=== PATIENT | female | born 1940 | race Caucasian/White ===

== ENCOUNTER 2017-04-10 13:55 | Inpatient (IN) | payer MEDICARE, OTHER ==
[~2017-04-10] VITALS: Ht 160 cm; Wt 54.0 kg
--- NOTE | ~2017-04-10 | CN ---
PATIENT NAME:PIERO LUCERO MEDICAL RECORD: [id number] : 40 LOCATION:[facility] ADMIT DATE: 04/10/17 ACCOUNT: [id number] CONSULTING PHYSICIAN: ARIADNA SINGH MD REFERRING PHYSICIAN: MODESTA FRANKLIN DO DATE OF CONSULTATION: 04/10/2017 CONSULT REQUESTING PHYSICIAN: Mik Franklin DO. REASON FOR CONSULTATION: COPD. HISTORY OF PRESENT ILLNESS: Ms. Lucero is a 77-year-old female very well known to me, who has an end-stage COPD. The patient had a fall and hurt her right leg and there was redness and swelling. The patient admitted for the cellulitis. According to the patient, her breathing is stable. There are no cough and no sputum production. She does have shortness of breath with exertion. REVIEW OF SYSTEMS: As in history of present illness. PAST MEDICAL HISTORY: 1. COPD of severe degree. 2. Chronic hypoxic respiratory failure. 3. Hypertension. 4. History of possible congestive heart failure. 5. History of pneumonia. PAST SURGICAL HISTORY: Nonsignificant. PERSONAL AND SOCIAL HISTORY: The patient is an ex-smoker. She is a nondrinker. FAMILY HISTORY: Noncontributory. ALLERGIES: SHE IS ALLERGIC TO PENICILLIN, ASPIRIN AND SULFA. PRESENT MEDICATIONS: In brettapproved was reviewed. PERSONAL AND SOCIAL HISTORY: As mentioned, the patient is a nonsmoker and nondrinker. PHYSICAL EXAMINATION: VITAL SIGNS: The blood pressure 156/76, pulse is 70, respirations 17, temperature 97.9 and SpO2 of 98% on 2 liters nasal cannula. HEENT: Conjunctivae are pink. Sclerae nonicteric. NECK: Supple. No JVD. CHEST: The chest excursion is minimal on both sides. There are no wheezes and no rales. HEART: Rhythm regular, normal sound, no murmur. ABDOMEN: Soft. Bowel sounds present. No hepatosplenomegaly. RECTAL: Deferred. EXTREMITIES: No cyanosis, no clubbing and no pedal edema. SKIN: Warm, normal turgor. CENTRAL NERVOUS SYSTEM: The patient is awake and alert. There are no obvious cranial nerve abnormality. The gait was not tested. SKIN: There is a swelling of the right lower extremity with cellulitis. CONSULT REPORT [id number] PIERO LUCERO LABORATORY DATA: CBC: WBC 10.6, hemoglobin 11.4, hematocrit 33.7 and platelet count 333. IMPRESSION: 1. Cellulitis of the right lower extremity. 2. Chronic hypoxic respiratory failure. 3. Chronic obstructive pulmonary disease without exacerbation. 4. Hyponatremia. 5. History of hypertension. RECOMMENDATION: 1. Continue vancomycin. I will add clindamycin with added effect Gram-positive cocci. 2. Continue albuterol/ipratropium nebulizer. Start Brovana and budesonide nebulizer. Supplemental oxygen. Check chest x-ray and followup labs. Dr. Franklin, thank you for involving me in the care of Ms. Lucero. TRANSINT:[id number] Voice Confirmation ID: [id number] DOCUMENT ID: [id number] ARIADNA SINGH MD CC: MODESTA FRANKLIN DO [id number] DICTATION DATE: 04/10/171719 VINEYARD TENDER: 04/10/172058 ADM IN [facility] [address] [id number]
[~2017-04-10 13:55] MED LIST: ADVAIR 100/501 DISK INH; CALAN SR240 MG PO; CALAN120 MG PO; CARDIZEM CD240 MG PO; COLACE100 MG PO; CORDARONE200 MG PO; COUMADIN2 MG PO; COUMADIN4 MG PO; COZAAR100 MG; COZAAR100 MG PO; DYAZIDE 37.5/251 CAP PO; ELIQUIS5 MG PO; K-DUR20 MEQ PO; LASIX40 MG PO; LEVAQUIN500 MG PO; MIRALAX17 GM PO; PREDNISONE10 MG PO; PREDNISONE20 MG PO; PROTONIX40 MG PO; RYTHMOL150 MG PO; ZOFRAN4 MG PO
[2017-04-10 14:22] LABS: BASOPHILS 0.4 % (0-2); EOSINOPHILS 2.6 % (0-7); HEMATOCRIT 33.7 % (36.0-48.0); HEMOGLOBIN 11.4 g/dL (12-16); IMMATURE GRANULOCYTES 0.8 % (0-5); LYMPHOCYTES 15.2 % (15-50); MCH 28.8 pg (26.0-34.0); MCHC 33.8 g/dL (31.0-37.0); MCV 85.1 fL (80.0-100.0); MEAN PLATELET VOLUME 9.8 fL (7.4-10.4); MONOCYTES 14.8 % (2-11); NEUTROPHILS 66.2 % (40-80); PLATELET COUNT 333 10x3/uL (130-400); RBC 3.96 10x6/uL (4.00-5.40); WBC 10.6 10x3/uL (4.8-10.8)
[2017-04-10 14:48] VITALS: BP 156/76; BMI 21.1
[2017-04-10 15:19] LABS: ALBUMIN 3.4 g/dL (3.4-5.0); ANION GAP 13.7 mmol/L (8-16); BILIRUBIN - TOTAL 0.4 mg/dL (0.2-1.3); CALCIUM 9.8 mg/dL (8.5-10.1); CARBON DIOXIDE 30.8 mmol/L (21.0-32.0); POTASSIUM - SERUM 3.5 mmol/L (3.5-5.1)
[2017-04-10 15:25] VITALS: BP 156/76
[2017-04-10] MEDS ORDERED: CARTIA XT120 MG PO (15:44)
[2017-04-10] MEDS ORDERED: PROPAFENONE HC150 MG PO (15:45)
[2017-04-10] MEDS ORDERED: DIOVAN HCT 160/1 TA1 PO ×2 (15:48→15:49)
[2017-04-10] MEDS ORDERED: IPRAT-ALBUT 0.5-3 ML UPD (15:56)
[2017-04-10 19:00] VITALS: BP 127/54
[2017-04-11 04:00] VITALS: BP 129/58
[2017-04-11 06:23] LABS: BASOPHILS 0.7 % (0-2); EOSINOPHILS 3.2 % (0-7); HEMATOCRIT 30.5 % (36.0-48.0); HEMOGLOBIN 10.1 g/dL (12-16); IMMATURE GRANULOCYTES 0.6 % (0-5); LYMPHOCYTES 15.6 % (15-50); MCH 28.5 pg (26.0-34.0); MCHC 33.1 g/dL (31.0-37.0); MCV 85.9 fL (80.0-100.0); MEAN PLATELET VOLUME 10.8 fL (7.4-10.4); MONOCYTES 18.5 % (2-11); NEUTROPHILS 61.4 % (40-80); PLATELET COUNT 338 10x3/uL (130-400); RBC 3.55 10x6/uL (4.00-5.40); RDW 14.1 % (11.5-14.5); WBC 9.1 10x3/uL (4.8-10.8)
[2017-04-11 06:49] LABS: ALBUMIN 2.7 g/dL (3.4-5.0); BILIRUBIN - TOTAL 0.31 mg/dL (0.2-1.3); CALCIUM 8.8 mg/dL (8.5-10.1); CARBON DIOXIDE 33.1 mmol/L (21.0-32.0); CREATININE - SERUM 1.1 mg/dL (0.6-1.3); POTASSIUM - SERUM 3.1 mmol/L (3.5-5.1); PROTEIN - SERUM 6.5 g/dL (6.4-8.2)
[2017-04-11] MEDS ORDERED: COUMADIN4 MG PO (08:31)
[2017-04-11] MEDS ORDERED: COUMADIN2 MG PO (08:32)
[2017-04-11 08:48] VITALS: BP 156/71
[2017-04-11 10:51] LABS: INR 1.75 (0.85-1.17); PROTIME 20.4 SECONDS (11.6-15.0)
[2017-04-11 12:33] VITALS: BP 141/67
[2017-04-11 13:36] VITALS: Ht 160 cm; Wt 54.0 kg
[2017-04-11 16:58] VITALS: BP 134/61
[2017-04-11 19:00] VITALS: BP 141/57
[2017-04-12 04:00] VITALS: BP 142/67
[2017-04-12 05:06] LABS: BASOPHILS 0.5 % (0-2); EOSINOPHILS 4.2 % (0-7); HEMATOCRIT 31.1 % (36.0-48.0); HEMOGLOBIN 10.2 g/dL (12-16); IMMATURE GRANULOCYTES 0.4 % (0-5); LYMPHOCYTES 15.4 % (15-50); MCH 28.7 pg (26.0-34.0); MCHC 32.8 g/dL (31.0-37.0); MCV 87.4 fL (80.0-100.0); MEAN PLATELET VOLUME 10.1 fL (7.4-10.4); MONOCYTES 18.1 % (2-11); NEUTROPHILS 61.4 % (40-80); PLATELET COUNT 288 10x3/uL (130-400); RBC 3.56 10x6/uL (4.00-5.40); RDW 14.3 % (11.5-14.5); WBC 9.3 10x3/uL (4.8-10.8)
[2017-04-12 05:18] LABS: INR 1.85 (0.85-1.17); PROTIME 21.4 SECONDS (11.6-15.0)
[2017-04-12 05:27] LABS: ANION GAP 8.2 mmol/L (8-16); CALCIUM 8.9 mg/dL (8.5-10.1); CARBON DIOXIDE 33.6 mmol/L (21.0-32.0); POTASSIUM - SERUM 3.8 mmol/L (3.5-5.1)
[2017-04-12 08:06] VITALS: BP 147/85
[2017-04-12 12:46] VITALS: BP 145/75
[2017-04-12 15:30] VITALS: BP 122/63
[2017-04-12 20:00] VITALS: BP 152/74
[2017-04-13] VITALS: BP 166/73
[2017-04-13 04:00] VITALS: BP 159/75
[2017-04-13 04:55] LABS: BASOPHILS 0.4 % (0-2); EOSINOPHILS 3.8 % (0-7); HEMATOCRIT 32.3 % (36.0-48.0); HEMOGLOBIN 10.6 g/dL (12-16); IMMATURE GRANULOCYTES 0.3 % (0-5); LYMPHOCYTES 14.4 % (15-50); MCHC 32.8 g/dL (31.0-37.0); MCV 88.3 fL (80.0-100.0); MEAN PLATELET VOLUME 10.4 fL (7.4-10.4); NEUTROPHILS 67.1 % (40-80); PLATELET COUNT 293 10x3/uL (130-400); RBC 3.66 10x6/uL (4.00-5.40); RDW 14.1 % (11.5-14.5); WBC 10.5 10x3/uL (4.8-10.8)
[2017-04-13 05:07] LABS: ANION GAP 6.4 mmol/L (8-16); CALCIUM 9.1 mg/dL (8.5-10.1); CREATININE - SERUM 0.9 mg/dL (0.6-1.3); POTASSIUM - SERUM 3.4 mmol/L (3.5-5.1)
[2017-04-13 05:11] LABS: INR 1.74 (0.85-1.17); PROTIME 20.4 SECONDS (11.6-15.0)
[2017-04-13 09:03] VITALS: BP 173/85
[2017-04-13 12:28] VITALS: BP 141/71
[2017-04-13 16:53] VITALS: BP 113/67; BP 139/74
[2017-04-13 20:00] VITALS: BP 132/71
[2017-04-14] VITALS: BP 127/62
[2017-04-14 04:00] VITALS: BP 158/72
[2017-04-14 05:28] LABS: BASOPHILS 0.6 % (0-2); EOSINOPHILS 4.1 % (0-7); HEMOGLOBIN 10.1 g/dL (12-16); IMMATURE GRANULOCYTES 0.3 % (0-5); LYMPHOCYTES 10.8 % (15-50); MCH 28.6 pg (26.0-34.0); MCHC 32.6 g/dL (31.0-37.0); MCV 87.8 fL (80.0-100.0); MEAN PLATELET VOLUME 10.3 fL (7.4-10.4); MONOCYTES 15.1 % (2-11); NEUTROPHILS 69.1 % (40-80); PLATELET COUNT 284 10x3/uL (130-400); RBC 3.53 10x6/uL (4.00-5.40); RDW 14.2 % (11.5-14.5); WBC 10.9 10x3/uL (4.8-10.8)
[2017-04-14 05:56] LABS: ANION GAP 3.9 mmol/L (8-16); CALCIUM 8.7 mg/dL (8.5-10.1); CARBON DIOXIDE 38.3 mmol/L (21.0-32.0); CREATININE - SERUM 0.9 mg/dL (0.6-1.3); POTASSIUM - SERUM 3.2 mmol/L (3.5-5.1)
[2017-04-14 09:00] VITALS: BP 170/71
[2017-04-14] MEDS ORDERED: MILK OF MAGNESI30 ML PO (09:06)
[2017-04-14] MEDS ORDERED: VANCOMYCIN 1 GM/1 G1 IV (09:06)
[2017-04-14] MEDS ORDERED: DIOVAN80 MG PO (09:15)
[2017-04-14 13:13] VITALS: BP 156/82
== END 2017-04-14 14:00 | DRG 603 ==
LOC: D.MS 13:55
PROVIDERS: Internal Medicine Pulmonary Disease; ADMIT Family Medicine
DX: L03.115 Cellulitis of right lower limb (principal); J96.11 Chronic respiratory failure with hypoxia; E87.1 Hypo-osmolality and hyponatremia; J44.9 Chronic obstructive pulmonary disease, unspecified; K21.9 Gastro-esophageal reflux disease without esophagitis; I10 Essential (primary) hypertension; I48.0 Paroxysmal atrial fibrillation; K59.09 Other constipation

== ENCOUNTER 2017-04-14 14:27 | Inpatient (IN) | payer MEDICARE, OTHER ==
[~2017-04-14] VITALS: Ht 160 cm; Wt 54.4 kg
[~2017-04-14 14:27] MED LIST changes: +CARTIA XT120 MG PO; +DIOVAN HCT 160/1 TA1 PO; +DIOVAN80 MG PO; +IPRAT-ALBUT 0.5-3 ML UPD; +MILK OF MAGNESI30 ML PO; +PROPAFENONE HC150 MG PO; +VANCOMYCIN 1 GM/1 G1 IV
[2017-04-14 15:55] VITALS: BP 141/71
--- NOTE | 2017-04-14 16:26 | NUR ---
PT RESTING IN BED WITH EYES OPEN CALL LIGHT IN REACH NO PROBLEMS WILL MONITER
--- NOTE | 2017-04-14 17:56 | NUR ---
SITTING ON EDGE OF BED EATING SUPPER TOLERATING WELL WILL MONITER
--- NOTE | 2017-04-14 19:25 | NUR ---
PT. IN BED WITH HOB UP FOR COMFORT. ASSESSMENT COMPLETED. PT. REPORTS SHE HAS LIQUID RUNNING FROM HER LEFT HAND. ASSESSED IV SITE AND IT IS INFILTRATED. D/C'D IV SITE WITH CATH TIP INTACT. NO BLEEDING SEEN AFTER PRESSURE APPLIED. BANDAID APPLIED TO SITE AND IV WILL BE RESITED. CALL LIGHT WITHIN REACH.
[2017-04-14 19:45] VITALS: BP 144/80
--- NOTE | 2017-04-14 23:45 | NUR ---
NEW IV RESITED INTO RIGHT FOREARM TIMES 1 ATTEMPT WITH 22GA ANGIOCATH WITHOUT ANY PROBLEMS. VANCOMYCIN INFUSION COMPLETED. PT. TOLERATED PROCEDURE WITHOUT COMPLAINTS. PT. REQUESTED R.T. COME AND GIVE HER A BREATHING TX. FOR HER WHEEZING/SOB. CALLED R.T. AND THEY WILL BE HERE SHORTLY. CALL LIGHT WITHIN REACH.
--- NOTE | 2017-04-15 03:10 | NUR ---
PT. IN BED LYING ON HER RIGHT SIDE WITH HOB UP FOR COMFORT. EYES CLOSED AND RESP. EVEN. CALL LIGHT WITHIN REACH.
[2017-04-15 07:07] LABS: BASOPHILS 0.3 % (0-2); EOSINOPHILS 2.8 % (0-7); HEMOGLOBIN 10.1 g/dL (12-16); IMMATURE GRANULOCYTES 0.3 % (0-5); LYMPHOCYTES 8.3 % (15-50); MCH 28.7 pg (26.0-34.0); MCHC 32.6 g/dL (31.0-37.0); MCV 88.1 fL (80.0-100.0); MEAN PLATELET VOLUME 10.4 fL (7.4-10.4); MONOCYTES 15.8 % (2-11); NEUTROPHILS 72.5 % (40-80); PLATELET COUNT 262 10x3/uL (130-400); RBC 3.52 10x6/uL (4.00-5.40); RDW 14.2 % (11.5-14.5)
[2017-04-15 07:15] LABS: CALC OSMOLALITY 261 mosm/kg (275-300); CALCIUM 9.4 mg/dL (8.5-10.1); CHLORIDE - SERUM 92 mmol/L (98-107); CREATININE - SERUM 0.7 mg/dL (0.6-1.3); GLUCOSE 102 mg/dL (74-106); POTASSIUM - SERUM 3.7 mmol/L (3.5-5.1); SODIUM 131 mmol/L (136-145); UREA NITROGEN 11 mg/dL (7-18); eGFR NON AFRICAN AMERICAN 86 mL/min (90-120)
[2017-04-15 07:19] LABS: INR 2.25 (0.85-1.17)
--- NOTE | 2017-04-15 08:00 | NUR ---
PT SITTING ON EDGE OF BED EATING BREAKFAST. PT DENIES NEEDS. WCTM.
[2017-04-15 09:23] VITALS: BP 165/78
--- NOTE | 2017-04-15 10:48 | NUR ---
PT RESTING IN BED, VISITORS AT BEDSIDE. WCLEMUEL.
--- NOTE | 2017-04-15 18:20 | NUR ---
PT RESTING , WAITING FOR RESPIRATORY. FAMILY AT BEDSIDE. WCTM.
[2017-04-15 19:45] VITALS: BP 149/72
--- NOTE | 2017-04-15 23:09 | NUR ---
PT. IN BED WITH HOB UP FOR COMFORT AND IS STILL WATCHING TV. ASSISTED TO BR AND SHE WAS UNABLE TO VOID. ASSISTED BACK TO BED AND POSITIONED TO COMFORT. O2 ON AT 2L/MIN VIA N/C WITHOUT ANY S/S DISTRESS OBSERVED. PT. DOES GET SOB W/EXERTION. CALL LIGHT WITHIN REACH.
--- NOTE | 2017-04-16 03:06 | NUR ---
PT. IN BED WITH HOB UP FOR COMFORT LYING ON HER RIGHT SIDE. EYES CLOSED AND RESP. EVEN. CALL LIGHT WITHIN REACH.
[2017-04-16 06:51] LABS: BASOPHILS 0 % (0-2); EOSINOPHILS 0 % (0-7); HEMATOCRIT 31.2 % (36.0-48.0); HEMOGLOBIN 10.2 g/dL (12-16); IMMATURE GRANULOCYTES 0.3 % (0-5); MCH 28.3 pg (26.0-34.0); MCHC 32.7 g/dL (31.0-37.0); MCV 86.4 fL (80.0-100.0); MEAN PLATELET VOLUME 10.7 fL (7.4-10.4); NEUTROPHILS 86.7 % (40-80); PLATELET COUNT 310 10x3/uL (130-400); RBC 3.61 10x6/uL (4.00-5.40); RDW 13.8 % (11.5-14.5)
[2017-04-16 07:05] LABS: WBC 8.6 10x3/uL (4.8-10.8)
[2017-04-16 07:06] LABS: INR 2.9 (0.85-1.17); PROTIME 30.6 SECONDS (11.6-15.0)
[2017-04-16 07:13] LABS: CALCIUM 8.9 mg/dL (8.5-10.1); CARBON DIOXIDE 34.2 mmol/L (21.0-32.0); CREATININE - SERUM 0.8 mg/dL (0.6-1.3); POTASSIUM - SERUM 4.2 mmol/L (3.5-5.1)
[2017-04-16 08:00] VITALS: BP 150/75
--- NOTE | 2017-04-16 10:01 | NUR ---
PATIENT ADMITTED TO REHAB FROM ACUTE FLOOR. DME AT HOME HOME: O2, WHEELCHAIR, WALKER AND BEDSIDE COMMODE. DR. FRANKLIN IS PCP AND PHARMACY IS [facility]. PLANS ARE FOR PATIENT TO RETURN HOME WITH SPOUSE. WILL CONTINUE TO FOLLOW WITH PATIENT.
--- NOTE | 2017-04-16 10:10 | NUR ---
PT AM MEDS ADMINISTERED. PT IN THERAPY AT THIS TIME, TOLERATING WELL. WCTM.
[2017-04-16 14:08] VITALS: Ht 160 cm; Wt 54.4 kg
--- NOTE | 2017-04-16 19:00 | NUR ---
PATIENT IN BED. VANCUMYCIN 1GM IN 250ML INFUSING PER PUMP VIA S/L IN RIGHT HAND @ 167ML/HR RATE. SAYS SITE FEELS MOIST. CHECKED CONNECTIONS AND FLUSHED IT. REMAINS PATENT, BUT POSITIONAL.
[2017-04-16 21:45] VITALS: BP 133/85
--- NOTE | 2017-04-16 21:50 | NUR ---
AFTER CLAMPING PRIMARY FLUID LINE TO STOP PRIMARY DROPS INFUSING AT ROSALVA TIME VANC SECONDARY DROPS, VANC INFUSION FINALLY COMPLETED. HOWEVER DUE TO POSITONAL NATURE AND SUSPECTED PARTIAL INFILTRATION, D/C'D 22 GA SL FROM RIGHT HAND AND INSERTED NEW 22GA S/L IN RIGHT LOWER FOREARM ABOVE WRIST ON 1ST ATTEMPT. GAVE PATIENT SOLU-MEDROL 40MG SLOW IVP THROUGH NEW S/L AND FLUSHED. STARTED CLINDAMYCIN 600MG IVPB TO RUN OVER 30 MINUTES PER PUMP.
--- NOTE | 2017-04-17 02:15 | NUR ---
RESTING QUIETLY IN BED ON RIGHT SIDE, HOB UP 35 DEGREES. APPEARS COMFORTABLE. WAS UP TO BR DOMMOCE WITH ASSIST IN THE 0 TIME FRAME.
[2017-04-17 04:55] VITALS: BP 179/91
--- NOTE | 2017-04-17 04:55 | NUR ---
GAVE PATIENT SCHEDULED SOLU-MEDROL SLOW IVP, FLUSHED RIGHT LOWER FA S/L AND STARTED CLINDAMYCIN 600MG IVPB TO RUN OVER 30 MINUTES. AT PATIENT REQUEST, TOOK HER VS WHICH ARE STABLE BUT BP IS SOMEWHAT ELEVATED. GAVE HER PRN CLONIDINE 0.1MG PO FOR BP 179/91. REPOSITIONED PATIENT HIGHER UP IN BED. PULSEOX IS 95% ON 2L PER N/C.
[2017-04-17 05:44] LABS: INR 3.02 (0.85-1.17); PROTIME 31.6 SECONDS (11.6-15.0)
--- NOTE | 2017-04-17 06:00 | NUR ---
RESTING QUIETLY IN BED ON RIGHT SIDE. NO DISTRESS NOTED.
--- NOTE | 2017-04-17 07:44 | NUR ---
LYING IN BED RESTING COMFORTABLY. NO S/SX OF RESPIRATORY DISTRESS. CALL LIGHT WITHIN REACH. WILL CONTINUE TO MONITOR
[2017-04-17 08:25] VITALS: BP 152/48
--- NOTE | 2017-04-17 09:45 | NUR ---
ADMINISTERED MORNING MEDS ONE AT A TIME WITHOUT DIFFICULTY. NO S/SX OF RESPIRATORY DISTRESS. PT REFUSED OT THIS AM STATES "I AM UNABLE TO DO THERAPY AND I DO NOT FEEL UP TO DOING IT" CALL LIGHT WITHIN REACH. WILL CONTINUE TO MONITOR THROUGHOUT THE DAY
--- NOTE | 2017-04-17 11:37 | NUR ---
Wound care consult: Pt has a scabbed area on lower right leg. It measures 3cm x 8cm. She states she fell and hit a tv stand several weeks ago. There is no redness, edema, tenderness, drainage or odor. The wound appears to be healing and pieces of dried scab are coming off with cleaning. Also noted is a scratched area on the back of left lower leg. Entire area measures 8cm x 2cm. Pt believes she scratched it with the toenails on right foot last night. It was discovered by her nurse finding blood on the sheet. Both areas were cleansed with wound poultry cleaner and dried. Covered with non-adherent gauze and secured with kerlix. Recommend antibiotic ointment be applied to scratched area. Wound care will monitor.
--- NOTE | 2017-04-17 11:57 | NUR ---
LYING IN BED RESTING COMFORTABLY. SLOWLY ADMINISTERED SOLU-MEDROL RT FOREARM IV AND HOOKED UP CLINDAMYCIN TO RUN OVER 30 MIN. OFFERS NO COMPLAINTS. CALL LIGHT WITHIN REACH. WILL CONTINUE TO MONITOR
--- NOTE | 2017-04-17 14:30 | NUR ---
IN THERAPY GYM DOING PHYSICAL THERAPY. NO S/SX OF RESPIRATORY DISTRESS. CALL LIGHT WITHING REACH
--- NOTE | 2017-04-17 17:08 | NUR ---
IN THERAPY GYM WITH OT. NO S/SX OF DISTRESS
--- NOTE | 2017-04-17 19:30 | NUR ---
PATIENT UP IN W/C AT BEDSIDE. VISITING. SAYS SHE WANTS MOM AT TIME OF HS MEDS SHE HAS HAD NO BM SINCE 04/15.
[2017-04-17 20:04] VITALS: BP 154/79
--- NOTE | 2017-04-17 20:20 | NUR ---
ASSESSMENT AND HS MEDS COMPLETE. GAVE PATIENT 4MG SOLU-MEDROL SLOW IVP VIA RIGHT FOREARM S/L, FLUSHED THE LINE AND THEN STARTED CLINDAMYCIN 600MG IVPB TO RUN PER PUMP OVER 30 MINUTES VIA AFOREMENTIONED S/L. STILL PRESENT, INSISTING I FOLLOW UP AND MAKE SURE R/T GIVES PATIENT SCHEDULED UPDRAFTS AND RESPIRATORY TREATMENTS. REMINDED HIM THAT THOUGHT TREATMENTS ARE NOMINALLY DUE AT 1900 HRS, THE THERAPISTS MUST COMPLETE SIMILARLY-SCHEDULED TREATMENTS IN THE UNITS THEY ARE SERVING PRESENTLY, BEFORE COMING TO TREAT OUR PATIENTS. ASSURED HIM I WILL INSURE TREATMENTS ARE GIVEN.
--- NOTE | 2017-04-17 21:55 | NUR ---
PATIENT CALLING OUT FOR HELP WHILE I WAS ASSISTING OTHER PATIENTS. FOUND PATIENT HAD HAD A LARGE AMOUNT OF RODRIGUEZ/LIQUID EMESIS DOWN HER GOWN. HAD ASSISTANT VICE PRESIDENT CLEANSE PATIENT AND CHANGED GOWN AND AFFECTED LINENS AND TO REPOSITION HER HIGHER UP IN BED. PATIENT REPORTS EMESIS WAS SPONTANEOUS WITHOUT NAUSEA. MAY HAVE OCCURRED WHEN SHE WAS COUGHING. PATIENT NOW SAYS SHE FEELS BETTER.
--- NOTE | 2017-04-18 00:05 | NUR ---
RESTING QUIETLY IN BED, EYES CLOSED.
--- NOTE | 2017-04-18 01:40 | NUR ---
PATIENT SHOUTING UNINTELLIGIBLY. CALL WAS FIRST ANSWERED BY KAMINI COLEY WHO DETERMINED THAT PATIENT WAS SAYING SHE NEEDED TO BE UP. WHEN I ARRIVED IN ROOM, FOUND PATIENT VERY SOMNOLENT WITH SPEECH QUITE SLURRED. ASSISTED HER UP BR COMMODE TO URINATE SHE HAS NOT DONE SO TONIGHT. HOPEFULLY SHE WILL ALSO HAVE THE BM SHE WANTS A RESULT OF EARLIER RECEIPT OF MOM AT 2019. PATIENT REMAINED ON COMMODE FOR ABOUT 15 MINUTES BUT COULD NOT URINATE OR HAVE A BM.
--- NOTE | 2017-04-18 01:55 | NUR ---
RETURNED HER TO BED AND BECAUSE OF DISTENDED ABDOMEN, I BLADDER SCANNED PATIENT WITH DISPLAYED RESULT IN EXCESS OF 999ML. PERFORMED I/O CATH USING ASEPTIC TECHNIQUE AND OBTAINED A MEASURED TOTAL OF 1050ML CLEAR LIGHT YELLOW URINE WITHOUT ODOR. FROM THIS I CRISTELA A URINE SAMPLE PER NEW ORDER OF DR. WOLFE AND SENT IT TO THE LAB. PATIENT IS VERY DISORIENTED CURRENTLY SHOUTING CLEARLY, "LET ME OUT. I WANT TO GET OUT OF HERE." CALLING LOUDLY FOR "KLAUS". BED ALARM REMAINS ARMED. SR UP X3 WITH WATER AND CALL LIGHT IN REACH.
--- NOTE | 2017-04-18 02:10 | NUR ---
PATIENT HAS CALMED DOWN NOW AND APPEARS TO BE RESTING QUIETLY.
--- NOTE | 2017-04-18 03:55 | NUR ---
STARTED IV CLINDAMYCIN 600MG IN 50 ML TO RUN PER PUMP OVER 30 MINUTES VIA RIGHT FOREARM S/L. PATIENT NOW CALM AND COOPERATIVE. WILL GIVE NEW 60MG DOSE OF IVP SLOU-MEDROL SOON SOFTWARE QUALITY ASSURANCE ENGINEER CAN COME TO OVERRIDE THE MED FROM PYXIS.
--- NOTE | 2017-04-18 04:50 | NUR ---
PATIENT WASS ASSISTED UP TO BR TO URINATE. PASSED GAS BUT COULD NOT URINATE. WAS ASSISTED BACK TO BED AND IVP SOLU-MEDROL 60MG WAS GIVEN TO PATIENT OVER 2 MINUTES. FLUSHED S/L.
[2017-04-18 05:37] VITALS: BP 160/98
--- NOTE | 2017-04-18 05:45 | NUR ---
PATIENT CALLING LOUDLY FOR HELP. WANTED TO KNOW WHAT HER VS WERE WHICH I HAD TAKEN ABOUT 40 MINUTES AGO, REPORTED TO HER AND HAVE NOW REPEATED TWICE. ASSURED HER SHE IS STABLE AND NEEDS TO TRY TO CALM DOWN A BIT.
[2017-04-18 06:17] LABS: BASOPHILS 0 % (0-2); EOSINOPHILS 0 % (0-7); IMMATURE GRANULOCYTES 0.4 % (0-5); LYMPHOCYTES 5.4 % (15-50); MCH 28.4 pg (26.0-34.0); MCHC 33.3 g/dL (31.0-37.0); MCV 85.2 fL (80.0-100.0); MEAN PLATELET VOLUME 10.4 fL (7.4-10.4); MONOCYTES 15.7 % (2-11); NEUTROPHILS 78.5 % (40-80); PLATELET COUNT 335 10x3/uL (130-400); RBC 3.52 10x6/uL (4.00-5.40); RDW 13.5 % (11.5-14.5)
[2017-04-18 06:32] LABS: WBC 12.8 10x3/uL (4.8-10.8)
[2017-04-18 06:41] LABS: CALCIUM 8.4 mg/dL (8.5-10.1); CREATININE - SERUM 0.7 mg/dL (0.6-1.3); GLUCOSE 134 mg/dL (74-106); MAGNESIUM - SERUM 1.9 mg/dL (1.8-2.4); POTASSIUM - SERUM 4.1 mmol/L (3.5-5.1); eGFR NON AFRICAN AMERICAN 86 mL/min (90-120)
[2017-04-18 06:46] LABS: INR 2.87 (0.85-1.17); PROTIME 30.3 SECONDS (11.6-15.0)
[2017-04-18 07:15] LABS: CALC OSMOLALITY 245 mosm/kg (275-300); UREA NITROGEN 23 mg/dL (7-18)
[2017-04-18 07:16] LABS: CHLORIDE - SERUM 79 mmol/L (98-107); SODIUM 119 mmol/L (136-145)
--- NOTE | 2017-04-18 07:21 | NUR ---
WHILE RECIEVING SHIFT REPORT, ADMISSIONS EVALUATORRadha GARCIA CAME OUT OF ROOM AND VOICED"MRS. VALDOVINOS HAD HER NASAL CANNULA OFF OF HER FACE AND HER OXYGEN SATURATION WAS ONLY 64%". I RUSHED TO PT ROOM INCRASED OXYGEN TO 10L AND RAISED PT UP IN TRIPOD POSTION OVER THE BESDIE TABLE DUE TO MRS. VALDOVINOS PULLING IN AIR HARD. VOICED TO PT TO TAKE GOOD DEEP BREATHS THROUGH HER NOSE AND TO CLOSE HER MOUTH. PT CLOSED MOUTH AND TOOK DEEP BREATHS THROUGH NOSE. PT OXYGEN SATURATION RISED QUICKLY TO 94%. PT WAS BREATHING EASIER AFTER A COUPLE OF MINUTES AND DECREASED OXYGEN BACK TO 2L, WHICH IS WHAT THE PT WAS ON PRIOR. PT SUSTAINED A OXYGEN SATURATION OF 95% ON 2L. ASKED PT IF SHE WAS FEELING BETTER AND SHE VOICED"IM DOING BETTER". BED IS LOW,SIDE RAILSX3, CALL LIGHT WITHIN REACH. WILL CONTINUE TO MONITOR PT.
--- NOTE | 2017-04-18 07:32 | NUR ---
RESPIRATORY THERAPIST IS IN PT ROOM TO GIVE PT AN UPDRAFT TREATMENT.
--- NOTE | 2017-04-18 08:10 | RHP ---
PATIENT: PIERO VALDOVINOS MEDICAL RECORD: [id number] ACCOUNT: [id number] LOCATION:[facility]1109 : 40 ADMISSION DATE: 04/14/17 REHABILITATION HISTORY AND PHYSICAL EXAMINATION POST ADMISSION PHYSICIAN EXAMINATION Post Admission Physical Examination and History and Physical DATE OF ADMISSION: 04/14/2017 ADMITTING DIAGNOSIS: Disuse myopathy. HISTORY OF PRESENT ILLNESS: The patient admitted to inpatient rehab with a neurological condition, neuromuscular disorders for disuse myopathy. She is a 77-year-old female patient with direct admit to the [facility] from physician's office after failed home therapy of oral antibiotics treatment for worsening wound to her right lower extremity and a fall. Approximately a month prior to this, the wound was noted to have redness and drainage. She is on anticoagulant therapy. She has home O2 with diagnosed end-stage COPD. She does have some shortness of breath with exertion. She had been receiving IV antibiotic therapy. She had been having some noted hypertension and on telemetry with a history of paroxysmal atrial fib. She also has some noted constipation, nausea and vomiting at times that seemed to be resolved. She states that in her right lower extremity somewhat better, states she is moderately independent with her mobility with the use of a rolling walker up to approximately a week prior to hospitalization due to pain in the right lower extremity. She was independent with her ADLs. She stated proximal weakness and difficulty in rising from a bed and chair. She is currently set up from moderate to max assist for ADLs and moderate assist to total assist for mobility. She and her plan to return home when prior level of functioning are better. COMORBIDITIES: Include cellulitis, COPD, chronic hypoxic respiratory failure, hyponatremia, hypertension, acute constipation, nausea and vomiting, paroxysmal atrial fib. PAST MEDICAL HISTORY: Significant for COPD, hypertension, history of congestive heart failure, pneumonia, acid reflux, constipation and anxiety. PAST SURGICAL HISTORY: Includes tubal ligation and hysterectomy. ALLERGIES: PENICILLIN, SULFA AND ASPIRIN. CURRENT MEDICATIONS: Include warfarin, she is on 2 mg Sunday and and is on 4 mg the rest of the days. She is on Cleocin 600 mg IV q.8 hours. She is on a Solu-Medrol. She is on Pulmicort 0.5 mg b.i.d., Brovana 15 mcg b.i.d., Tylenol 650 q.6 hours p.r.n., DuoNeb updrafts, potassium chloride 20 mEq daily, furosemide 40 mg daily, Colace 200 mg daily, diltiazem 120 mg daily, albuterol updrafts as needed, vancomycin 1 gram q.24 hours, Diovan 160 mg b.i.d., propafenone 150 mg t.i.d., on Milk of Magnesia p.r.n., Advair 1 puff b.i.d., and polyethylene glycol 17 grams in 8 ounces of water daily. HABITS: No current alcohol or tobacco use. FAMILY HISTORY: Noncontributory. HISTORY AND PHYSICAL [id number] PIERO VALDOVINOS SOCIAL HISTORY: The patient hopes to return back home with her and get back to her prior level of functioning. REVIEW OF SYSTEMS: GENERAL: Does complain of weakness. HEENT: Does complain of cold, cough, or congestion. CARDIOVASCULAR: Denies any chest pain. LUNGS: Does complain of shortness of breath. PHYSICAL EXAMINATION: VITAL SIGNS: Stable, afebrile. GENERAL: A thin female, in no acute distress, alert upon exam. HEENT: Normocephalic and atraumatic. Mucosa moist. NECK: Supple. No lymphadenopathy LUNGS: Clear at this time. HEART: Regular rate and rhythm. ABDOMEN: Benign. EXTREMITIES: No clubbing, cyanosis or edema. NEUROLOGIC: Intact. LABORATORY DATA: Her white count 13.0, H&H of 10 and 31 and platelet count 262. Her INR is 2.25. Sodium 131, potassium 3.7, BUN and creatinine of 11 and 0.7, blood sugar is noted to be 102. ASSESSMENT: This is a 77-year-old female patient admitted to rehab with a working diagnosis of disuse myopathy. The patient has potential to make improvement. We instituted the following multidisciplinary therapies including to, but not limited to physical, occupational, respiratory, speech, nutritional services, prosthetics and orthotics. Given her complex condition and risk for more complications, rehabilitation services cannot be provided at a lower level of care such as a fci facility. PLAN: 1. Admit to [facility] rehab for intensive inpatient therapy to include the following disciplines: A. Physical therapy to improve gait, all transfer skills and bed mobility to a modified level. B. Occupational therapy to improve activities of daily living to a modified independent level. C. Case management to assist with discharge planning and placement options. D. Nutrition to assist with nutritional needs. E. Rehabilitation nursing to assist in monitoring the patient's underlying medical conditions and to assist with any type of bowel or bladder management. 2. The patient's current medication and medical care will be continued. 3. We will go ahead and consult Dr. Perkins, her operations asst to see during her stay. 4. We will go ahead and discuss this patient during care team staff meeting this week. TRANSINT:[id number] Voice Confirmation ID: [id number] DOCUMENT ID: [id number] CHERYL notes whether there has been none or any medical/functional change since admission: HISTORY AND PHYSICAL [id number] PIERO VALDOVINOS - No change since prescreen. CHERYL attests patient continues to be appropriate for IRF: - Continues to be appropriate. LATESHA SNOW MD at 0810 CC: [id number] DICTATION DATE: 04/15/17 1148 BERRY PLANTER: 04/15/17 1428 ADM IN [facility] [address] [place] [address]
--- NOTE | 2017-04-18 08:20 | NUR ---
HELPED TRANSPORT PT TO ICU AND GAVE REPORT TO ICU NURSE.
--- NOTE | 2017-04-18 11:41 | NUR ---
DUE TO CHANGE IN MEDICAL CONDITION PATIENT DISCHRGE FROM REHAB AND ADMITTED TO ACUTE FLOOR.
[2017-04-19] MEDS ORDERED: ACIDOPHILUS LAC1 CAP PO (03:57)
[2017-04-19] MEDS ORDERED: PULMICORT0.5 MG/21 INH (03:58)
[2017-04-19] MEDS ORDERED: BROVANA15 MCG/2 M INH (03:58)
[2017-04-19] MEDS ORDERED: CLEOCIN PREMIX600 MG (03:59)
[2017-04-19] MEDS ORDERED: MUCINEX DM ER1 EAC1 PO (04:00)
[2017-04-19] MEDS ORDERED: SOLU-MEDRO40 MG/1 M1 IV (04:00)
[2017-04-19] MEDS ORDERED: CATAPRES0.1 MG PO (04:01)
--- NOTE | 2017-04-24 16:50 | CN ---
PATIENT NAME:PIERO LUCERO MEDICAL RECORD: [id number] : 40 LOCATION:[id number] ADMIT DATE: 04/14/17 ACCOUNT: [id number] CONSULTING PHYSICIAN: ARIADNA SINGH MD REFERRING PHYSICIAN: LATESHA VAZQUEZ MD DATE OF CONSULTATION: 04/15/2017 Pulmonary Consultation CONSULT REQUESTING PHYSICIAN: Latesha Vazquez MD REASON FOR CONSULTATION: Acute exacerbation of COPD. HISTORY OF PRESENT ILLNESS: Ms. Lucero is a 77-year-old female with end-stage COPD and chronic hypoxic respiratory failure. Recently, she was hospitalized with the cellulitis of the right lower extremity. The patient made significant improvement and transferred downstairs for the rehab now. Since yesterday, she had worsening short of breath. She is coughing, which is productive whitish color sputum production. There are no fever or chills. She also hears herself wheezing. REVIEW OF SYSTEMS: As in history of present illness. PAST MEDICAL HISTORY: 1. Chronic obstructive pulmonary disease of severe degree. 2. Chronic hypoxic respiratory failure. 3. Hypertension. 4. History of congestive heart failure. 5. History of recurrent pneumonia. 6. History of cellulitis of the right lower extremity. PAST SURGICAL HISTORY: Nonsignificant. ALLERGIES: SHE IS ALLERGIC TO PENICILLIN, ASPIRIN, AND SULFA. PRESENT MEDICATIONS: She is on vancomycin IV, albuterol and ipratropium nebulizer. Her other medication is reviewed. PERSONAL AND SOCIAL HISTORY: The patient is an ex-smoker. She is a nondrinker. FAMILY HISTORY: Noncontributory. PHYSICAL EXAMINATION: GENERAL: Now, the patient is lying comfortably. She is not in acute distress. VITAL SIGNS: The blood pressure is 165/78, pulse is 75, respirations 18, temperature 97.8. SpO2 99% on 2 liters nasal cannula. HEENT: Conjunctivae is pink, sclerae nonicteric. NECK: Supple, no JVD. CHEST: Excursion is minimal on both sides. There is no wheeze, no rales. HEART: Rhythm regular, normal sound, no murmur. ABDOMEN: Soft. Bowel sounds present. No hepatosplenomegaly. RECTAL: Deferred. EXTREMITIES: No cyanosis, no clubbing, no pedal edema. SKIN: Warm, normal turgor. CENTRAL NERVOUS SYSTEM: The patient is awake and alert. There are no obvious CONSULT REPORT [id number] PIERO LUCERO cranial nerve abnormality. The gait was not tested. LABORATORY DATA: CBC: The WBC is 13,000, hemoglobin 10, hematocrit 31. Chemistry: Sodium 131, potassium is 3.7, BUN is 11, creatinine 0.7. IMPRESSION: 1. Acute exacerbation of chronic obstructive pulmonary disease. 2. Acute bronchitis. 3. Acute cough. 4. Cellulitis of the right lower extremity, this has been improving. 5. Leukocytosis. 6. Hyponatremia. 7. Chronic hypoxic respiratory failure. RECOMMENDATION: 1. Continue vancomycin. I will restart her clindamycin 600 mg q.8 hourly. 2. Supplemental oxygen. 3. Start Brovana and budesonide nebulizer. Start her on methylprednisolone IV. 4. Mucinex DM 2 tablets b.i.d. 5. Albuterol and ipratropium nebulizers 3-4 times a day. 6. Check the chest radiograph. Follow up labs. Dr. Vazquez thank you for involving me in the care of Ms. Lucero. TRANSINT:[id number] Voice Confirmation ID: [id number] DOCUMENT ID: [id number] ARIADNA SINGH MD at 1650 CC: LATESHA VAZQUEZ MD [id number] DICTATION DATE: 04/15/17 1149 GEODETIC SURVEY DIRECTOR: 04/15/17 1833 DIS IN 04/18/17 [facility] [address] [place] [address]
== END 2017-04-18 08:23 | disposition short-term general hospital (02) | DRG 92 ==
LOC: D.REHAB 14:27
PROVIDERS: ADMIT Emergency Medicine
DX: G72.89 Other specified myopathies (principal); J96.11 Chronic respiratory failure with hypoxia; E87.1 Hypo-osmolality and hyponatremia; L03.115 Cellulitis of right lower limb; J44.1 Chronic obstructive pulmonary disease with (acute) exacerbation; I50.32 Chronic diastolic (congestive) heart failure; R11.2 Nausea with vomiting, unspecified; I48.0 Paroxysmal atrial fibrillation; Z79.01 Long term (current) use of anticoagulants; K21.9 Gastro-esophageal reflux disease without esophagitis; K59.00 Constipation, unspecified; I27.2 Other secondary pulmonary hypertension; I11.0 Hypertensive heart disease with heart failure

== ENCOUNTER 2017-04-18 08:23 | Inpatient (IN) | payer MEDICARE, OTHER ==
[2017-04-18] VITALS (21 sets, daily range): BP systolic 108–161; BP diastolic 70–100; BMI 21.8
--- NOTE | 2017-04-18 07:21 | NUR ---
WHILE RECIEVING SHIFT REPORT, RESTAURANT HOURLY TEAM MEMBERRadha GARCIA CAME OUT OF ROOM AND VOICED"MRS. VALDOVINOS HAD HER NASAL CANNULA OFF OF HER FACE AND HER OXYGEN SATURATION WAS ONLY 64%". I RUSHED TO PT ROOM INCRASED OXYGEN TO 10L AND RAISED PT UP IN TRIPOD POSTION OVER THE BESDIE TABLE DUE TO MRS. VALDOVINOS PULLING IN AIR HARD. VOICED TO PT TO TAKE GOOD DEEP BREATHS THROUGH HER NOSE AND TO CLOSE HER MOUTH. PT CLOSED MOUTH AND TOOK DEEP BREATHS THROUGH NOSE. PT OXYGEN SATURATION RISED QUICKLY TO 94%. PT WAS BREATHING EASIER AFTER A COUPLE OF MINUTES AND DECREASED OXYGEN BACK TO 2L, WHICH IS WHAT THE PT WAS ON PRIOR. PT SUSTAINED A OXYGEN SATURATION OF 95% ON 2L. ASKED PT IF SHE WAS FEELING BETTER AND SHE VOICED"IM DOING BETTER". BED IS LOW,SIDE RAILSX3, CALL LIGHT WITHIN REACH. WILL CONTINUE TO MONITOR PT.
--- NOTE | 2017-04-18 07:32 | NUR ---
RESPIRATORY THERAPIST IS IN PT ROOM TO GIVE PT AN UPDRAFT TREATMENT.
--- NOTE | 2017-04-18 07:40 | NUR ---
RESPIRATORY THERAPIST CAME OUT OF ROOM AND VOICED, WE NEED TO CALL A RAPID RESPONSE THE PT IS NOT TALKING TO ME. I RAN INTO PT ROOM AND PT WAS UNCONSCIOUS AND UNRESPONSIVE. CHECKED FOR A PULSE AND COULD NOT FILL ONE. AUTOMATICLY STARTED CHEST COMPRESSIONS, CALLED A IRIS REESE AND RESPIRATORY THERAPIST GOT AN AMBU BAG. CONTINUED CHEST COMPRESSIONS. IRIS BLUE TEAM ARRIVED A FEW MINUTES LATER AND SWITCHED OUT CHEST COMPRESSIONS WITH ANOTHER NURSE. LOOK AT IRIS REESE SHEET FOR REST OF IRIS REESE INTERVENTIONS DONE UNTILL PT WAS TAKEN TO ICU INTUBATED.
--- NOTE | 2017-04-18 08:20 | NUR ---
HELPED TRANSPORT PT TO ICU AND GAVE REPORT TO ICU NURSE.
[2017-04-18 09:11] LABS: BASOPHILS 0 % (0-2); EOSINOPHILS 0.1 % (0-7); HEMATOCRIT 27.1 % (36.0-48.0); HEMOGLOBIN 9.1 g/dL (12-16); IMMATURE GRANULOCYTES 0.9 % (0-5); LYMPHOCYTES 6.1 % (15-50); MCH 28.7 pg (26.0-34.0); MCHC 33.6 g/dL (31.0-37.0); MCV 85.5 fL (80.0-100.0); MEAN PLATELET VOLUME 9.9 fL (7.4-10.4); MONOCYTES 2.1 % (2-11); NEUTROPHILS 90.8 % (40-80); RBC 3.17 10x6/uL (4.00-5.40); RDW 13.3 % (11.5-14.5)
[2017-04-18 09:40] LABS: ALBUMIN 2.7 g/dL (3.4-5.0); BILIRUBIN - TOTAL 0.29 mg/dL (0.2-1.3); CARBON DIOXIDE 36.5 mmol/L (21.0-32.0); MAGNESIUM - SERUM 1.9 mg/dL (1.8-2.4); POTASSIUM - SERUM 4.2 mmol/L (3.5-5.1); PROTEIN - SERUM 6.2 g/dL (6.4-8.2)
[2017-04-18 09:47] LABS: PLATELET COUNT 225 10x3/uL (130-400); WBC 16.8 10x3/uL (4.8-10.8)
[2017-04-18 09:48] LABS: CREATININE - SERUM 0.9 mg/dL (0.6-1.3)
[2017-04-18 09:50] LABS: ANION GAP 6.7 mmol/L (8-16); TROPONIN-I 0.092 ng/mL (0.000-0.060)
--- NOTE | 2017-04-18 10:20 | NUR ---
RECEIVED PATIENT FROM REHAB POST CODE BLUE AT 0820 PER BED. ETT SECURE 7.5 AT 25 AT THE LIP. BILATERAL LUNG SOUNDS EQUAL WITH RHONCHI. PATIENT RESISITANT TO CARE ARMS AND LEGS FIGHTING DIPRIVAN GTT STARTED. DR. WOLFE AND SAURABH CONSULTED BOTH NOTIFIED OF CONSULT IV STARTED LEFT AC PER ANALISA MENDOZA INFUSING NS AT 999 ML HOUR, THEN 75 ML HOUR. OG TUBE CHECKED FOR PLACEMENT AIR HEARD IN ABD. ABD LARGE AND DISTENDED ON ARRIVAL OG CONNECTED TO SUCTION. GERMAIN CATH PLACE PER REUBEN SALGADO IN SUPERVISOR MACHINING WITH IMMEDIATE RETURN OF CLEAR PALE YELLOW URINE LARGE AMOUNT. DRESSOMG ON BOTH LOWER LEGS REMOVED LEFT WITH LARGE SKIN TEAR TERADERM APPLIED. RIGHT LOWER LEG WITH TWO OPEN AREA SOME OLD BLODDY DRAINAGE. ADAPTIC APPLIED WITH 4 X 4 AND SECURE WITH KERLIX. NO SIGNS OF INFECTION NO REDNESS OR DRAINAGE. NO SKIN BREAK DOWN NOTED. IV LEFT JUGLAR INFUSING WITH DIPRIVAN AT 30 MCG/KG/MIN. PATIENT RESTING COMFORTABLY. FAMILY IN ROOM QUESTIONS ANSWERED. 2 PLUS EDEMA IN LOWER EXTREMITIES. REPORTS THAT PATIENT HAS SLURRED SPEECH YESTERDAY AND LETHERGIC. PUPILS PINPOINT. ALL EXTREMITIES WARM TO TOUCH
--- NOTE | 2017-04-18 15:00 | NUR ---
PT SEDATED AND ON THE VENT. NGT WITH INT SUCTION NOTED. BLACK STOMACH CONTENT NOTED. COPIOUS AMOUNT OF THICK BLOODY SPETUM SUCTIONED FROM MOUTH AND THICK GREEN SPEUTUM SUCTIONED FROM ETT. PT SEDATED WITH DIPROVAN AT 20MCG VIA IV TO LEFT NECK. DRESSING C/D/I. NS TO LEFT FA AT 75ML/H. FC PATENT WITH CLEAR YELLOW URINE NOTED. FAMILY AT BED SIDE. CALL LIGHT IN REACH. WILL CONT POC
--- NOTE | 2017-04-18 16:00 | NUR ---
FAMILY UPDATED ABOUT CT RESULTS WHICH SHOWS LEFT FRONTAL LOBE ACUTE ISCHIMIA. MD ZHOU CONSULTED AND PAGED. DR ZHOU AWARE.
--- NOTE | 2017-04-18 16:53 | NUR ---
TACHYCARDIC OF 135-145. BP 155/98. DR WILEY PAGED WITH NEW ORDERS OF DILTIAZEM 60MG Q6 H PER NGT.
--- NOTE | 2017-04-18 17:00 | NUR ---
IV TO NECK CAME OUT. PRESSURE DRESSING APPLIED. DIPROVAN RESITED TO RIGHT HAND.
--- NOTE | 2017-04-18 18:45 | NUR ---
PT REMAINS IN BED. ORAL AND EET SUCTIONED WITH THICK SPEUTUM NOTED WITH TRACES OF BLOOD. REMAINS SEDATED. CALL LIGHT IN REACH. WILL CONT POC
--- NOTE | 2017-04-18 19:41 | NUR ---
SPOKE TO DR. WOLFE NOTIFIED OF HR 142 AND OF NEW ORDER FOR CARDIZEM 60MG Q6H RECEIVED BY DR. WILEY AND PT HAS RECEIVED 1ST DOSE. NEW ORDERS FOR CARDIZEM GTT RECEIVED READ BACK AND VERIFIED. CONFIRMED THE ORAL CARDIZEM WAS TO BE CONTINUED ORDERED PER DR. WILEY TO BE REEVALUATED TOMORROW
--- NOTE | 2017-04-18 21:00 | NUR ---
DAUGHTER, LETICIA, HERE TO VISIT. UPDATE GIVEN QUESTION ANSWERED CODE WORD ESTABLISHED.
--- NOTE | 2017-04-18 21:40 | NUR ---
ABHIJIT HUNG WITH NEW TUBING
--- NOTE | 2017-04-18 23:00 | NUR ---
SHIFT REASSESSMENT COMPLETED SEE FLOWSHEET NO SIGNIFICANT CHANGES. IS TOLERATING VENT WELL. REMAINS IN SINUS RHYTHM ALL ALARMS SET. CONTINUE TO PROVIDE ALL ADLS FOR PT. PT DOES PULL BACK AND GRIMACE WHEN ADJUSTING LEGS AND TURNING ALTHOUGH QUICKLY CALMS AND RETURNS TO BASELINE WITH A ELIZONDO SCORE OF 0. CONTINUE TO MONITOR PER STANDARD ICU PROTOCOL.
[2017-04-19] VITALS (24 sets, daily range): BP systolic 110–156; BP diastolic 58–87; BMI 20.3
--- NOTE | 2017-04-19 03:14 | NUR ---
REASSESSMENT COMPLETE, NO CHANGES NOTED, PT REPOSITIONED FOR COMFORT, ORAL CARE PROVIDED, WILL CON'T TO MONITOR
--- NOTE | 2017-04-19 03:15 | NUR ---
REASSESSMENT COMPLETE, PT IS NOW FOLLOWING COMMANDS, OPENS EYES SPONTANEOUSLY, REPOSITIONED FOR COMFORT, ORAL CARE PROVIDED, WILL CON'T TO MONITOR
[2017-04-19 03:46] LABS: BASOPHILS 0 % (0-2); EOSINOPHILS 0 % (0-7); HEMATOCRIT 24.1 % (36.0-48.0); HEMOGLOBIN 8.1 g/dL (12-16); IMMATURE GRANULOCYTES 0.4 % (0-5); LYMPHOCYTES 10.1 % (15-50); MCH 28.2 pg (26.0-34.0); MCHC 33.6 g/dL (31.0-37.0); MEAN PLATELET VOLUME 10.3 fL (7.4-10.4); MONOCYTES 7.7 % (2-11); NEUTROPHILS 81.8 % (40-80); PLATELET COUNT 210 10x3/uL (130-400); RBC 2.87 10x6/uL (4.00-5.40); RDW 13.7 % (11.5-14.5); WBC 14.9 10x3/uL (4.8-10.8)
[2017-04-19] MEDS ORDERED: ACIDOPHILUS LAC1 CAP PO (03:57)
[2017-04-19] MEDS ORDERED: BROVANA15 MCG/2 M INH (03:58)
[2017-04-19] MEDS ORDERED: PULMICORT0.5 MG/21 INH (03:58)
[2017-04-19] MEDS ORDERED: CLEOCIN PREMIX600 MG (03:59)
[2017-04-19] MEDS ORDERED: MUCINEX DM ER1 EAC1 PO (04:00)
[2017-04-19] MEDS ORDERED: SOLU-MEDRO40 MG/1 M1 IV (04:00)
[2017-04-19] MEDS ORDERED: CATAPRES0.1 MG PO (04:01)
[2017-04-19 04:05] LABS: PROTIME 22.7 SECONDS (11.6-15.0)
[2017-04-19 04:21] LABS: ALBUMIN 2.2 g/dL (3.4-5.0); BILIRUBIN - TOTAL 0.39 mg/dL (0.2-1.3); CALCIUM 7.5 mg/dL (8.5-10.1); CARBON DIOXIDE 35.8 mmol/L (21.0-32.0); CREATININE - SERUM 0.8 mg/dL (0.6-1.3); MAGNESIUM - SERUM 1.6 mg/dL (1.8-2.4); PROTEIN - SERUM 5.3 g/dL (6.4-8.2)
[2017-04-19 04:22] LABS: ANION GAP 4.2 mmol/L (8-16); PHOSPHOROUS 1.5 mg/dL (2.5-4.9); TROPONIN-I 0.149 ng/mL (0.000-0.060)
--- NOTE | 2017-04-19 06:14 | NUR ---
DR. ZHOU AT BEDSIDE, UPDATE GIVEN TO FAMILY, WILL CON'T TO MONITOR
--- NOTE | 2017-04-19 08:16 | NUR ---
PT AWAKENS AND FOLLOWS COMMMAND STRONG PROJECT MANAGEMENT IT SPECIALIST BUE AND BLE. NODS HEAD TO QUESTIONS ASKED. INTUBATED AND ON VENT. A/C 12 40% FI02. DIPROVAN FOR SEDATION AT 25MCG/KG/MIN. PT REST QUIETLY. SPO2 96%. BP 143/73, AFEBRILE, NSR ON CM, 73BPM.
--- NOTE | 2017-04-19 12:22 | EC ---
PATIENT:PIERO VALDOVINOS DATE OF SERVICE: 04/18/17 SEX: F MEDICAL RECORD: [id number] DATE OF : 40 LOCATION:[facility] AGE OF PATIENT: 77 ADMISSION DATE: 04/18/17 REFERRING PHYSICIAN: INTERPRETING PHYSICIAN: ALONZO YOUNG MD ECHOCARDIOGRAM REPORT ECHO CHARGES 4 ECHO COMPLETE CLINICAL DIAGNOSIS: SOB ECHOCARDIOGRAPHIC MEASUREMENTS (adult normal given) AC root (d.<3.7cm) 3.2 cm LV Septum d (<1.2 cm> 1.5 cm Valve Excursion 1.7 cm LV Septum (systole) 1.9 cm Left Atria (s.<4.0cm> 3.5 cm LVPW d(<1.2cm) 1.4 cm RV (d.<2.3cm) 2.0 cm LVPW (sytole) 1.8 cm LV diastole(<5.6CM) 3.3 cm MV E-F(>70mm/sec) cm LV systole 1.8 cm LVOT Diameter 1.5 cm MV exc.(>10mm) cm Est.ejection fraction (50-75%) % Pericardial Effusion N DOPPLER: LVIT cm/sec A 140 cm/sec E 108 cm/sec LA cm/sec RVSP 30.0 mmHg LVOT 111 cm/sec AOP1/2T m/s Asc. Ao 127 cm/sec RVOT 75.0 cm/sec RA cm/sec PA 98.0 cm/sec AV Gradient Peak 6.4 mmHg AV Mean 3.0 mmHg AV Area 1.8 cm MV Gradient Peak 8.0 mmHg MV Mean 3.4 mmHg MV Area cm COMMENTS: Dispatcher Street Department: 1 SP [facility] Play Back Operator: 1 Dr. Young TAPE# PACS DATE OF SERVICE: 04/18/2017 Echocardiogram FINDINGS: 1. Left ventricle chamber size is within normal limits. Left ventricular systolic function is normal. Overall ejection fraction estimated at 55%. 2. Left atrium, right atrium, and right ventricle chamber sizes are within normal limits. 3. Valvular structures have normal structure and motion. ECHOCARDIOGRAM REPORT [id number] PIERO VALDOVINOS 4. Doppler interrogation reveals trace mitral regurgitation, mild tricuspid regurgitation, no other valvular insufficiency or stenosis. Pulmonary systolic pressure is normal estimated at 30 mmHg. 5. No evidence of pericardial effusion or left ventricular thrombus. TRANSINT:[id number] Voice Confirmation ID: [id number] DOCUMENT ID: [id number] ALONZO YOUNG MD at 1222 CC: MODESTA FRANKLIN DO [id number] DICTATION DATE: 04/18/17 1217 FOUR H CLUB AGENT: 04/18/17 [address] [facility] [address] [id number]
--- NOTE | 2017-04-19 12:22 | CN ---
PATIENT NAME:PIERO LUCERO MEDICAL RECORD: [id number] : 40 LOCATION:[id number] ADMIT DATE: 04/18/17 ACCOUNT: [id number] CONSULTING PHYSICIAN: ALONZO WILEY MD REFERRING PHYSICIAN: MODESTA FRANKLIN DO DATE OF CONSULTATION: 04/18/2017 Cardiology Consultation DIAGNOSES: 1. Cardiopulmonary arrest. 2. Atrial fibrillation, chronic. HISTORY OF PRESENT ILLNESS: Mrs. Lucero was in the hospital for pneumonia, she went to a rehab, appears that she was slurring her speech yesterday and confused from a mental status standpoint. She was then found overnight to be unresponsive. She was bradycardic at that point, they bagged her, regained an airway, she then regained a tachycardic atrial fibrillation response, was intubated and is now with atrial fibrillation at a controlled ventricular response. Echocardiogram reveals a normal ejection fraction, overall normal valvular structures. She has not had any significant cardiac problems in the past other than the atrial fibrillation. She is on Coumadin anticoagulation, her INR is 3. PHYSICAL EXAMINATION: GENERAL APPEARANCE: The patient is intubated and sedated. PSYCHIATRIC: Mental status, alert, normal affect. Orientation, oriented to time, place and person. EYES: Lids and conjunctiva, noninjected. No discharge, no pallor. ENT: Lips, teeth, gums, normal dentition. Oropharynx, no cyanosis, no pallor. NECK: Carotid arteries, bilateral normal upstroke, no bruits, no thrills. JUGULAR VEINS: No jugular venous pressure or distention. CERVICAL LYMPH NODES: Nontender, nonenlarged. THYROID: Not enlarged. Nontender. No nodules. LUNGS: Respiratory effort, unlabored. CHEST: Normal curvature. No thoracic deformity. No chest wall tenderness. Percussion, resonant. Auscultation, clear. No wheezes, no rales, no rhonchi. CARDIOVASCULAR: Heart is irregularly irregular, in a controlled atrial fibrillation. EXTREMITIES: No cyanosis, no edema. Peripheral pulses, full and equal in all extremities, except as noted. No bruits appreciated. ABDOMEN: Soft, nondistended. Normal aorta. No bruit. Nontender. No masses. Liver, nontender, no hepatomegaly. Spleen, nontender, no splenomegaly. MUSCULOSKELETAL: No joint tenderness. No joint swelling. No erythema. NEUROLOGICAL: Normal gait, normal strength, normal tone. SKIN: Warm and dry. OVERALL IMPRESSION: Most likely, the bradycardia was secondary to the hypoxemia and most likely this had nothing to do with a primary cardiac event. We need to scan her head as she was slurring her words and confused, especially in light of Coumadin anticoagulation, this very well may be hemorrhagic or nonhemorrhagic cerebrovascular accident. As well, she had a sodium of 119, this as well could cause her confusion and her slurring of words and this needs to be corrected, but once again this is not a primary cardiac issue. CONSULT REPORT [id number] PIERO LUCERO TRANSINT:[id number] Voice Confirmation ID: [id number] DOCUMENT ID: [id number] ALONZO WILEY MD at 1222 CC: [id number] DICTATION DATE: 04/18/17 09 CASH PROCESSOR: 04/18/[address] [facility] [address] [place] [address]
--- NOTE | 2017-04-19 19:00 | NUR ---
REPORT REC'. PATIENT CARE ASSUMED. ASSESSMENT COMPLETED PER FLOW SHEETS. PT SEDATED ON VENT, OPENS EYES WITH VOICES, FOLLOWS COMMANDS BY NODDING THE HEAD. GOOD CERTIFIED CODING SPECIALIST BILAT. CONTA-FIB ON MONITOR WITH HR AT 74, LUNG SOUNDS COARSE/ DIMINISHED TO ALL OVIEDO. UNLABORED ON VENT. GERMAIN INTACT TO GRAVITY WITH CL/Y DRAINAGE TO BAG. PPP. WILL CONT TO MONITOR.
--- NOTE | 2017-04-19 21:00 | NUR ---
AT BEDSIDE. UPDATED AND QUESTIONS ANSWERED.
--- NOTE | 2017-04-19 23:00 | NUR ---
REASSESSMENT COMPLETED PER FLOW SHEETS. PT SEDATED ON VENT AROUSES EASILY WITH VOICES. NO ACUTE CHANGES IN PT'S CONDITION NOTED. VSS. CONT TO MONITOR.
[2017-04-20] VITALS (26 sets, daily range): BP systolic 121–168; BP diastolic 71–107
--- NOTE | 2017-04-20 01:00 | NUR ---
PT SEDATED ON VENT, NO DISTRESS NOTED. VSS. MOUTH CARE AND SUCTIONED DONE PER VAP. REPOSITIONED FOR COMFORT. PILLOWS IN USE FOR SUPPORT. CPOC.
--- NOTE | 2017-04-20 03:00 | NUR ---
PT INCONTINENET OF LARGE SOFT STOOL. BEDBATH GIVEN. SKIN CARE PROVIDED. MOUTH CARE AND SUCTIONED PER VAP DONE. REASSESSMENT COMPLETED. SEE FLOW SHEETS FOR ALL FINDINGS. VSS. CPOC.
[2017-04-20 04:58] LABS: BASOPHILS 0.1 % (0-2); EOSINOPHILS 0 % (0-7); HEMATOCRIT 28.1 % (36.0-48.0); HEMOGLOBIN 9.5 g/dL (12-16); IMMATURE GRANULOCYTES 0.7 % (0-5); MCH 28.7 pg (26.0-34.0); MCHC 33.8 g/dL (31.0-37.0); MCV 84.9 fL (80.0-100.0); MEAN PLATELET VOLUME 10.2 fL (7.4-10.4); MONOCYTES 5.6 % (2-11); NEUTROPHILS 84.6 % (40-80); PLATELET COUNT 203 10x3/uL (130-400); RBC 3.31 10x6/uL (4.00-5.40); RDW 14.2 % (11.5-14.5); WBC 16.7 10x3/uL (4.8-10.8)
[2017-04-20 05:23] LABS: CALCIUM 8.4 mg/dL (8.5-10.1); CARBON DIOXIDE 33.2 mmol/L (21.0-32.0); CHLORIDE - SERUM 96 mmol/L (98-107); CREATININE - SERUM 0.6 mg/dL (0.6-1.3); MAGNESIUM - SERUM 1.9 mg/dL (1.8-2.4); SODIUM 135 mmol/L (136-145); UREA NITROGEN 17 mg/dL (7-18); eGFR NON AFRICAN AMERICAN > 90 mL/min (90-120)
[2017-04-20 05:29] LABS: PHOSPHOROUS 2.8 mg/dL (2.5-4.9)
[2017-04-20 05:40] LABS: CALC OSMOLALITY 273 mosm/kg (275-300); GLUCOSE 131 mg/dL (74-106)
[2017-04-20 05:42] LABS: POTASSIUM - SERUM 2.7 mmol/L (3.5-5.1)
--- NOTE | 2017-04-20 07:00 | NUR ---
RECIEVED REPORT FROM OFF GOING NURSE. PT IN BED ON THE VENTILATOR. 7.5 TUBE, 25 AT THE LIP, SIMV MODE WITH A RATE OF 15, TITAL VOL 550 PS, 15, PEEP5 AND FIO2 AT 35%. O2 SAT 97%. DIPROVAN RUNNING AT 25MCG TO LEFT FOREARM IV. NS AT 75ML/H AND CARDIZEM AT 10MG RO RIGHT WRIST IV. BOTH PATENT WITH C/D/I DRESSINGS. PT ABLE TO FOLLOW COMMANDS. HAS BUE +3 VASCULAR PHYSICIAN. FC HAS YELLOW CLEAR URINE NOTED. DENIES PAIN. CALL LIGHT IN REACH. WILL CONT POC.
--- NOTE | 2017-04-20 09:00 | NUR ---
SCOTT PUMP RECIEVED FROM SUPPLIES. TUBE FEEDING PER ORDERS. OGT PLACEMENT CHECKED VIA A&A. 0 RESIDUAL NOTED. CALL LIGHT IN REACH. WILL CONT POC
--- NOTE | 2017-04-20 10:50 | NUR ---
DR WOLFE AT BED SIDE. PLANS TO EXCUTBATE SOON.
--- NOTE | 2017-04-20 12:06 | NUR ---
PT EXCUTUBATED VIA RT. O2 AT 6L VIA NC. O2 SAT 97%. ENCOURAGED TO COUGHT. COUGHING THICK CLEAR SPEUTUM. WILL CONT POC AND MONITOR
--- NOTE | 2017-04-20 14:00 | NUR ---
ENCOURAGE TCDB. HAS A VERY WEAK AND WET NON PRODUCTIVE COUGH. EVERY SO OFTEN, SHE IS ABLE TO COUGH UP CLEAR/WHITE THICK SPEUTUM. REMAINS ON O2 VIA NC AT 5L. SHALLOW BREATHS NOTED. O2 SAT ABOUT 95%.
--- NOTE | 2017-04-20 17:55 | NUR ---
ENCOURAGED TCDB. REMAINS TO HAVE A WEAK PRODUCTIVE COUGH. O2 SAT 91%. OXIMIZER IN USE AT 4L. O2 SAT 98%. WILL CONT POC
--- NOTE | 2017-04-20 19:47 | NUR ---
PT AOX4. SHALLOW RESPIRATIONS, LUNG SOUNDS CRACKLES THROUGHOUT SPO2 96 ON 3L OXYMIZER. S1S2 HEARD, PERIPHERAL PULSES PRESENT. GERMAIN CATH INTACT. ORAL CARE ADM. COUGH/DB WITH WEAK EFFORT. GENERALIZED WEAKNESS PRESENT. PT REPOSITIONED FOR COMFORT. FRESH WATER TO BEDSIDE. DENIES PAIN, DENIES NEEDS AT THIS TIME. CALL LIGHT WITHIN PT REACH. CPOC.
--- NOTE | 2017-04-20 21:45 | NUR ---
NO VISITORS AT THIS TIME. VSS, NO ACUTE CHANGES NOTED AT THIS TIME. PT RESTING COMFORTABLY. CPOC.
--- NOTE | 2017-04-20 23:47 | NUR ---
REASSESSMENT COMPLETE, SEE FLOWSHEET FOR ALL FINDINGS. NO ACUTE CHANGES NOTED AT THIS TIME. COUGH/DB WITH WEAK EFFORT. PT REPOSITIONED IN BED FOR COMFORT. PARTIAL LINEN CHANGE. VSS, NO C/O PAIN AT THIS TIME. DENIES FURTHER NEEDS. CALL LIGHT AND BEDSIDE TABLE WITHIN PT REACH. CPOC.
[2017-04-21] VITALS (25 sets, daily range): BP systolic 110–161; BP diastolic 70–106
--- NOTE | 2017-04-21 01:48 | NUR ---
PT SLEEPING WITH NO S/S OF PAIN. SPO2 97, 3L O2. VSS. NO S/S OF DISTRESS AT THIS TIME. PT ALLOWED TO CONTINUE SLEEPING UNDISTURBED AT THIS TIME. CALL LIGHT WITHIN PT REACH. CPOC.
--- NOTE | 2017-04-21 03:45 | NUR ---
REASSESSMENT COMPLETE, SEE FLOWSHEET FOR ALL FINDINGS. NO ACUTE CHAGNES NOTED AT THIS TIME. COUGH/DB WITH WEAK EFFORT. PT REPOSITIONED FOR COMFORT. FRESH WATER TO BEDSIDE. VSS, NO C/O PAIN AT THIS TIME. PT RESTING COMFORTABLY. CALL LIGHT WITHIN PT REACH. CPOC.
[2017-04-21 04:24] LABS: BASOPHILS 0.1 % (0-2); CALC OSMOLALITY 274 mosm/kg (275-300); CALCIUM 8.1 mg/dL (8.5-10.1); CARBON DIOXIDE 32.3 mmol/L (21.0-32.0); CHLORIDE - SERUM 98 mmol/L (98-107); CREATININE - SERUM 0.6 mg/dL (0.6-1.3); EOSINOPHILS 0 % (0-7); GLUCOSE 161 mg/dL (74-106); HEMATOCRIT 28.3 % (36.0-48.0); HEMOGLOBIN 9.1 g/dL (12-16); IMMATURE GRANULOCYTES 1.9 % (0-5); LYMPHOCYTES 5.4 % (15-50); MAGNESIUM - SERUM 1.8 mg/dL (1.8-2.4); MCH 28.2 pg (26.0-34.0); MCHC 32.2 g/dL (31.0-37.0); MCV 87.6 fL (80.0-100.0); MEAN PLATELET VOLUME 10.2 fL (7.4-10.4); MONOCYTES 4.7 % (2-11); NEUTROPHILS 87.9 % (40-80); PHOSPHOROUS 2.4 mg/dL (2.5-4.9); PLATELET COUNT 237 10x3/uL (130-400); POTASSIUM - SERUM 3.6 mmol/L (3.5-5.1); RBC 3.23 10x6/uL (4.00-5.40); RDW 14.5 % (11.5-14.5); SODIUM 135 mmol/L (136-145); UREA NITROGEN 17 mg/dL (7-18); WBC 21.8 10x3/uL (4.8-10.8); eGFR NON AFRICAN AMERICAN > 90 mL/min (90-120)
--- NOTE | 2017-04-21 06:42 | NUR ---
PT REPOSITIONED WITH BONY PROMINENCES BRIDGED. ORAL CARE ADM. FRESH WATER TO BEDSIDE. VSS. DENIES FURTER NEEDS AT THIS TIME. CALL LIGHT WITHIN PT REACH. CPOC.
--- NOTE | 2017-04-21 15:24 | NUR ---
HEART RATE 80-90'S. TURNED CARDIZEM GTT DOWN TO 5 MG HOUR. GOT UP TO RETURN TO BED HEART RATE UP TO 160'S ATRAIL FIB TURNED CARDIZEM BACK UP TO 160'S. HEART RATE C;URRENTLY IN 120'S. FAMILY AT BEDSIDE. QUESTIONS ANSWERED
--- NOTE | 2017-04-21 17:27 | NUR ---
PATIENT'S HEART RATE 160'S -110 MORE IN 160'S RANGE. AFTER RETURNING FROM CT SCAN. CARDIZEM GTT AT 10 MG/HOUR. CARDIZEM PO GIVEN. REPOSIIONED IN BED. BLOOD PRESSURE 130/90 THEN 120/80. DR[address] DR. ONEIL NOTIFIED ORDER RECEIVED FOR LOPRESSOR 5 MG IV.
--- NOTE | 2017-04-21 19:40 | NUR ---
PT AOX4, COOPERATIVE. RESPIRATIONS SHALLOW, SPO2 96 ON 2L, NC. HOB @ 40 DEGREES. LUNG SOUNDS CRACKLES/WHEEZES. PRODUCTIVE COUGH PRESENT. COUGH WEAK, FLUTTER WITH GOOD EFFORT. AFIB ON MONITOR, CARDIZEM GTT INFUSING. PERIPHERAL PULSES PRESENT. BOWEL SOUNDS ACTIVE IN ALL QUADRANTS. GERMAIN CATH INTACT WITH YELLOW URINE TO BEDSIDE DRAINAGE. GENERALIZED WEAKNESS PRESENT. FRESH WATER TO BEDSIDE. PT REPOSITIONED FOR COMFORT. DENIES FURTHER NEEDS AT THIS TIME. CALL LIGHT AND BEDSIDE TABLE WITHIN PT REACH. CPOC.
--- NOTE | 2017-04-21 21:22 | NUR ---
AT BEDSIDE, UPDATE GIVEN AND QUESTIONS ANSWERED. PT RESTING COMFORTABLY AT THIS TIME. DENIES NEEDS. CALL LIGHT AND BEDSIDE TABLE WITHIN PT REACH. CPOC.
[2017-04-22] VITALS (30 sets, daily range): BP systolic 92–149; BP diastolic 59–93
--- NOTE | 2017-04-22 01:40 | NUR ---
PT SLEEPING QUIETLY WITH VSS, NO S/S OF DISTRESS AT THIS TIME. PT ALLOWED TO CONTINUE SLEEPING UNDISTURBED AT THIS TIME. CALL LIGHT WITHIN PT REACH. CPOC.
[2017-04-22 03:43] LABS: BASOPHILS 0.1 % (0-2); EOSINOPHILS 0 % (0-7); HEMATOCRIT 27.8 % (36.0-48.0); IMMATURE GRANULOCYTES 2.4 % (0-5); LYMPHOCYTES 4.9 % (15-50); MCH 28.5 pg (26.0-34.0); MCHC 32.4 g/dL (31.0-37.0); MEAN PLATELET VOLUME 10.2 fL (7.4-10.4); MONOCYTES 4.8 % (2-11); NEUTROPHILS 87.8 % (40-80); PLATELET COUNT 260 10x3/uL (130-400); RBC 3.16 10x6/uL (4.00-5.40); RDW 14.6 % (11.5-14.5); WBC 25.2 10x3/uL (4.8-10.8)
--- NOTE | 2017-04-22 03:46 | NUR ---
REASSESSMENT COMPLETE, SEE FLOWSHEET FOR ALL FINDINGS. VSS, PT REPOSITIONED FOR COMFORT. COUGH/DB WITH GOOD EFFORT. ORAL CARE PROVIDED AT THIS TIME. FRESH WATER TO BEDSIDE. DENIES FURTHER NEEDS AT THIS TIME. CALL LIGHT WITHIN PT REACH. CPOC.
[2017-04-22 03:50] LABS: INR 0.98 (0.85-1.17); PROTIME 12.8 SECONDS (11.6-15.0)
[2017-04-22 04:04] LABS: ANION GAP 9.3 mmol/L (8-16); CALCIUM 8.5 mg/dL (8.5-10.1); CARBON DIOXIDE 36.1 mmol/L (21.0-32.0); MAGNESIUM - SERUM 1.8 mg/dL (1.8-2.4); PHOSPHOROUS 2.2 mg/dL (2.5-4.9); POTASSIUM - SERUM 3.4 mmol/L (3.5-5.1)
[2017-04-22 04:05] LABS: CREATININE - SERUM 0.8 mg/dL (0.6-1.3)
--- NOTE | 2017-04-22 06:29 | NUR ---
NO VISITORS AT THIS TIME. PT REPOSITIONED FOR COMFORT, VSS, NO C/O PAIN AT THIS TIME. COUGH/DB ENCOURAGED, GOOD EFFORT. FRESH WATER TO BEDSIDE. DENIES FURTHER NEEDS AT THIS TIME. CALL LIGHT WITHIN PT REACH. CPOC.
--- NOTE | 2017-04-22 13:57 | NUR ---
RETURN TO BED PER PT. TOALLY EXHAUST PATIENT TO STAND AND PIVOT INTO BED. SMALL SMEAR DARK BROWN STOOL.TEJA CARE AND GERMAIN CARE PROVIDED. TOLERATED FAIR. SKIN COOL AND DRY. PATIENT SAYS SHE IS BURNING UP. TYLNEOL GIVEN FOR CHEST DISCOMFORT FROM CPR LAST SUNDAY. GERMAIN CATH PATENT. POOR COUGH EFFORT THIS AFTERNOON.
--- NOTE | 2017-04-22 15:40 | NUR ---
DAUGHTER AT BEDSIDE. HEART RATE BELOW 120 SINCE INCREASING CARDIZEM TO 15 MG/HOUR
--- NOTE | 2017-04-22 19:15 | NUR ---
REC'D TO CARE, ENVIRONMENTAL PROGRAM MANAGER PER FLOWSHEET. AT BS. CM - CAF. PT AWAKE AND ANSWERS QUESTIONS APPROP. DENIES SOB, C/O "BEING HOT". COOL CLOTH TO FOREHEAD AND ROOM TEMP ADJUSTED. IVFS INFUSING TO PIV X 2, NO REDNESS OR SWELLING AT SITES. SKIN NOTED TO BE THIN, OLD DSGS FROM BLOOD DRAWS REMOVED. SMALL SKIN TEAR TO L WRIST COVERED WITH TELFA AND SPANDEX. GERMAIN CATH PATENT AND DRAINING DARK YELLOW URINE. PT POSITIONED FOR COMFORT WITH PILLOWS. DENIES NEEDS AT THIS TIME. C/L IN REACH AND ALARMS ON.
--- NOTE | 2017-04-22 22:25 | NUR ---
SMALL BM NOTED; SOFT BROWN. PT CLEANED; LINEN CHANGED. GERMAIN CARE COMPLETE.
--- NOTE | 2017-04-22 22:45 | NUR ---
DYSPNEA NOTED. PT PLACED ON 3L OXYMIZER. O2 SAT 87% ON 4L NC.
--- NOTE | 2017-04-22 23:10 | NUR ---
REASSESSMENT COMPLETE. PT ON 5L OXYMIZER. O2 SATS FALL AROUND 87-89%. DYSPNEA ON EXERTION. STARTED AT 3L INCREASED TO 5L AT THIS TIME. O2 SAT 93% CURRENTLY.
[2017-04-23] VITALS (25 sets, daily range): BP systolic 99–158; BP diastolic 53–99
--- NOTE | 2017-04-23 00:15 | NUR ---
PT INCREASED TO 7L OXYMIZER. DYSPNEA ON EXERTION. O2 SATS DECREASE WHEN PT TRIES TO TALK. PT USES CALL LIGHT FREQUENTLY ASKING FOR VARIOUS ITEMS. REQUEST FAN TO BE MOVED REGULARLY PT STATES PT GETS HOT AND COLD. AFEBRILE.
--- NOTE | 2017-04-23 01:30 | NUR ---
PT RESTING; EYES CLOSED. VSS. NO DISTRESS NOTED. WILL CONTINUE TO PLAN OF CARE.
--- NOTE | 2017-04-23 03:00 | NUR ---
REASSESSMENT COMPLETE. NO ACUTE CHANGES FROM PREVIOUS ASSESSMENT. VSS. NO DISTRESS NOTED. WILL CONTINUE TO MONITOR.
[2017-04-23 03:53] LABS: HEMATOCRIT 30.3 % (36.0-48.0); HEMOGLOBIN 9.8 g/dL (12-16); MCH 29.1 pg (26.0-34.0); MCHC 32.3 g/dL (31.0-37.0); MCV 89.9 fL (80.0-100.0); MEAN PLATELET VOLUME 9.7 fL (7.4-10.4); PLATELET COUNT 285 10x3/uL (130-400); RBC 3.37 10x6/uL (4.00-5.40); RDW 15.1 % (11.5-14.5); WBC 26.3 10x3/uL (4.8-10.8)
[2017-04-23 04:10] LABS: CALC OSMOLALITY 285 mosm/kg (275-300); CALCIUM 9.1 mg/dL (8.5-10.1); CARBON DIOXIDE 37.3 mmol/L (21.0-32.0); CHLORIDE - SERUM 97 mmol/L (98-107); CREATININE - SERUM 0.6 mg/dL (0.6-1.3); GLUCOSE 160 mg/dL (74-106); PHOSPHOROUS 2.6 mg/dL (2.5-4.9); POTASSIUM - SERUM 4.7 mmol/L (3.5-5.1); SODIUM 138 mmol/L (136-145); UREA NITROGEN 32 mg/dL (7-18); eGFR NON AFRICAN AMERICAN > 90 mL/min (90-120)
[2017-04-23 04:29] LABS: LYMPHOCYTES 3 % (15-50); MONOCYTES 3 % (2-11); NEUTROPHILS 94 % (40-80); PLATELET ESTIMATE NORMAL
--- NOTE | 2017-04-23 07:15 | NUR ---
PAGEJohn WOLFE. X2 ATTEMPT. INCREASED PT OXYMIZER TO 12L.
--- NOTE | 2017-04-23 07:53 | NUR ---
DR SINGH CALLED [facility] RESULT GIVEN PER PAULINE AVILA. SPOKE WITH DR SINGH, NEED TO CLARIFY CODE STATUS. ALL FAMILY MEMBERS CALLED. NO ANSWER AND COULD NOT LEAVE A MESSAGE. BIPAP APPLIED TO PT FOR CRITICAL CO2.
--- NOTE | 2017-04-23 07:57 | NUR ---
REACH DAUGHTER LETICIA, INSTRUCT MOTHER NOT DOING WELL REQUIRING BIPAP NEXT STEP INTUBATION. NEED CLARIFICATION ON CODE STATUS. STATES IM ON MY WAY.
--- NOTE | 2017-04-23 10:23 | NUR ---
NUTRITION F/U CHART REVIEWED. NURSING REPORTS PT ON BIPAP. NO PO INTAKE. WILL MAKE TUBE FEED RECS IF NEEDED. RD FOLLOWING
--- NOTE | 2017-04-23 11:00 | NUR ---
DR SINGH HERE. CODE STATUS CLARIFIED. PT DOES NOT WANT INTUBATION. MED CODE ONLY. FAMILY IN AGREEMENT.
--- NOTE | 2017-04-23 15:15 | NUR ---
REC'D REPORT AND RESUMED CARE, BIPAP IN USE AT 40%, FIO2, AWAKE, VSS, DENIES PAIN, WILL CONTINUE WITH POC
--- NOTE | 2017-04-23 16:00 | NUR ---
I AND O'S COMPLETED, FAMILY AT BEDSIDE
--- NOTE | 2017-04-23 17:30 | NUR ---
BIPAP OFF, OXYMIZER AT 6L INITIATED, ORAL CARE COMPLETED WITH ASSIST, DINNER TRAY TO BEDSIDE, ASSIST WITH SET UP AND EATING, DIET MESSAGE SENT FOR CREAM OF CHIX SOUP AND CHOCOLATE ENSURE, 60 % OF MEAL EATEN
--- NOTE | 2017-04-23 19:15 | NUR ---
ASSESSMENT COMPLETE. PT PLACED ON BIPAP. RR SHALLOW CRACKLES BILATERALLY IN UPPER LOBES; DIMINISHED BILATERALLY IN LOWER LOBES. AAO. RADIAL PULSES +2; PEDAL PULSES +1. SKIN PALE. SKIN TEARS NOTED ON ARMS AND LEGS. BRUSING TO UPPER EXTREMITIES. PERRLA. FAMILY AT BEDSIDE. CHART CHECKED; NOTES TO NOT INTUBATE IF CODE; PT AND FAMILY REFUSED INTUBATION.
--- NOTE | 2017-04-23 21:00 | NUR ---
PT RESTING; EYES CLOSED. VSS. NO DISTRESS NOTED. ON BIPAP. FAMILY AT BEDSIDE.
--- NOTE | 2017-04-23 23:00 | NUR ---
REASSESSMENT COMPLETE. NO ACUTE CHANGES FROM PREVIOUS ASSESSMENT. FAMILY REMAINS AT BEDSIDE.
[2017-04-24] VITALS (24 sets, daily range): BP systolic 97–169; BP diastolic 58–96
--- NOTE | 2017-04-24 01:50 | NUR ---
PT PLACED BACK ON BIPAP. C/O SOB.
--- NOTE | 2017-04-24 02:45 | NUR ---
ARRIVES TO BEDSIDE. UPDATED ON PT CONDITION. QUESTIONS ANSWERED. VERIFIED NO INTUBATION. WISHES TO SPEAK WITH FAMILY ABOUT CPR AND MEDICATION ADMINISTRATION FOR CODING SITUATIONS.
--- NOTE | 2017-04-24 03:10 | NUR ---
REASSESSMENT COMPLETE. NO ACUTE CHANGES FROM PREVIOUS ASSESSMENT. VSS. NO DISTRESS NOTED. WILL CONTINUE TO MONITOR. AT BEDSIDE.
[2017-04-24 05:08] LABS: BASOPHILS 0.1 % (0-2); EOSINOPHILS 0.1 % (0-7); HEMATOCRIT 26.8 % (36.0-48.0); HEMOGLOBIN 8.2 g/dL (12-16); IMMATURE GRANULOCYTES 3.5 % (0-5); MCHC 30.6 g/dL (31.0-37.0); MCV 91.5 fL (80.0-100.0); MONOCYTES 6.8 % (2-11); NEUTROPHILS 83.5 % (40-80); PLATELET COUNT 234 10x3/uL (130-400); RBC 2.93 10x6/uL (4.00-5.40); RDW 15.2 % (11.5-14.5)
[2017-04-24 05:10] LABS: WBC 19.5 10x3/uL (4.8-10.8)
[2017-04-24 05:34] LABS: ALBUMIN 2.6 g/dL (3.4-5.0); ALKALINE PHOSPHATASE 55 U/L (46-116); ALT (SGPT) 32 U/L (10-68); CALC OSMOLALITY 284 mosm/kg (275-300); CALCIUM 9.3 mg/dL (8.5-10.1); CARBON DIOXIDE 33.5 mmol/L (21.0-32.0); CHLORIDE - SERUM 101 mmol/L (98-107); CREATININE - SERUM 0.7 mg/dL (0.6-1.3); GLUCOSE 152 mg/dL (74-106); PROTEIN - SERUM 5.6 g/dL (6.4-8.2); SODIUM 137 mmol/L (136-145); UREA NITROGEN 34 mg/dL (7-18); eGFR NON AFRICAN AMERICAN 86 mL/min (90-120)
[2017-04-24 05:47] LABS: POTASSIUM - SERUM 3.8 mmol/L (3.5-5.1)
--- NOTE | 2017-04-24 06:30 | NUR ---
DC'D PIV TO RIGHT AC; RIGHT WRIST; LEFT FOREARM; CATH INTACT TO ALL 3 PIV. ALL 3 PIV INFILTRATED. 20GAUGE PIV STARTED TO LEFT SHOULDER; PATENT; PT DENIES PAIN. DRESSINGS CHANGED AT RIGHT AC; RIGHT AND LEFT LOWER EXTREMITIES CLEANED AND NEW DRESSINGS APPLIED. DRESSING APPLIED TO RIGHT FOREARM; SKIN TEAR NOTED; WEEPING EDEMA NOTED. DRESSINGS DATED AND TIMED. IV SITE DATED.
--- NOTE | 2017-04-24 08:30 | NUR ---
BIPAP OFF AND OXYMIZER AT 6L ON, BREAKFAST TRAY TO BEDSIDE, ASSIST WITH SET UP AND EATING, SPOUSE AT BEDSIDE, AM MEDS GIVEN AT THIS TIME, SPOUSE AT BEDSIDE, NO NEEDS AT THIS TIME
--- NOTE | 2017-04-24 09:11 | NUR ---
NUTRITION F/U CHART REVIEWED. NURSING REPORTS PT WITH 75% INTAKE MECH SOFT DIET THIS AM. PT ALSO ORDERING ENSURE WITH SOME MEALS. RD FOLLOWING
--- NOTE | 2017-04-24 11:00 | NUR ---
CONTINUES TO SIT UP IN CHAIR WITH BIPAP IN USE, O2 SAT 99% ON 4O% FIO2, AASSESSMENT COMPLETE, NO ACUTE CHANGE FROM PREVIOUS ASSESSMENT
--- NOTE | 2017-04-24 11:23 | NUR ---
BTB WITH TOTAL ASSIST FROM PT, CONTINUES ON BIPAP AT 40%, TOLERATED TRANSFER
--- NOTE | 2017-04-24 12:00 | NUR ---
DAUGHTER AT BEDSIDE, STATUS UPDATED, VOICES NO NEEDS AT THIS TIME
--- NOTE | 2017-04-24 14:00 | NUR ---
SLEEPING WITH NO SIGN OF DISTRESS, VSS, CONTINUES ON BIPAP @ 30% FIO2, WILL CONTINUE WITH POC
--- NOTE | 2017-04-24 15:00 | NUR ---
SNACK TRAY TO BEDSIDE, ASSIST WITH SET UP AND EATING, BITES AND SIPS, ENSURE SUPPLEMENT DRANK, O2 VIA 6L OXYMIZER ASSESSMENT COMPLETE, NO ACUTE CHANGE FROM PREVIOUS
--- NOTE | 2017-04-24 15:30 | NUR ---
DAUGHTER AT BEDSIDE, STATUS UPDATED, VOICES NO NEEDS AT THIS TIME
--- NOTE | 2017-04-24 15:53 | NUR ---
* Is the patient Alert and Oriented? Yes 0 * How many steps to enter\exit or inside your home? 4-5 0 * PCP Dr. Franklin 0 * [facility] 0 * Preadmission Environment Home with Family 0 * ADLs Partial Dependent 0 * Partial ADLs (Assistance needed) Ambulation 0 * Equipment Bedside Commode Nebulizer Oxygen Rolling Walker Wheelchair 0 * List name and contact numbers for known caregivers / representatives who currently or will assist patient after discharge: Spouse - Rainer [phone] or [phone] Daughter - Roberto Carlos [phone] or [phone] Grandson - Sarath [phone] 0 * Additional services required to return to the preadmission environment? Yes 0 * Can the patient safely return to the preadmission environment? Yes 0 * Has this patient been hospitalized within the prior 30 days at any hospital? No Patient Name: PIERO VALDOVINOS Admission Status: Elective Accout number: [id number] Admission Date: 04-18-2017 : 1940 Admission Diagnosis:CARDIAC ARREST, CAUSE UNSPECIFIED Attending: MODESTA FRANKLIN Current LOS: 6 Planned Disposition: Home with Home Health Primary Insurance: MEDICARE A & B Discharge Planning Comments: CM met with patient & spouse to assess dc plans/needs. Patient is very SOB & wearing BiPap - , Rainer, answers most questions. He reports they live together in a single level home. He states she has become progressively weaker over the last couple of months and started using a walker at home. He states she also has a BSC & WC at home should she need them. She has home O2 & a nebulizer. She had home health services approximately 10 years ago, but unable to recall agency. At dc, she is agreeable to home health if necessary. CM will follow & assist as needed. Safety Council Director: Francesca Harvey
--- NOTE | 2017-04-24 16:00 | NUR ---
CALLED TO BEDSIDE, WANTS BIPAP ON, HAVING DYSPNEA, BACK ON AT 30% FIO2, NO OTHER ACUTE CHANGES AT THIS TIME
--- NOTE | 2017-04-24 18:00 | NUR ---
SPOUSE AT BEDSIDE, STATUS UPDATED, VOICEC NO NEEDS AT THIS TIME
--- NOTE | 2017-04-24 19:15 | NUR ---
ASSESSMENT COMPLETE. PT ON BIPAP @ 30%. CONTROLLED AFIB SHOWING ON MONITOR. RR SHALLOW; WHEEZE NOTED BILATERALLY ON INSPIRE AND IN UPPER AND MID LOBES; DIMINISHED BILATERALLY IN LOWER LOBES. PERRLA. SCABS/SORES NOTED TO LOWER SHINS X2; DRESSINGS CDI. DRESSINGS NOTED TO SKIN TEAR ON LEFT FOREARM. DRESSINGS APPLIED TO PREVIOUS PIV SITE; WEEPING EDEMA AT SITE.
--- NOTE | 2017-04-24 21:50 | NUR ---
PT WAS ON OXYMIZER AT 6 FOR 25 MINUTES. PT ABLE TO TELL WHEN NEEDING BIPAP.
--- NOTE | 2017-04-24 23:15 | NUR ---
REASSESSMENT COMPLETE. NO ACUTE CHANGES FROM PREVIOUS ASSESSMENT. VSS. NO DISTRESS NOTED. CALL LIGHT IN REACH. WILL CONTINUE TO MONITOR.
[2017-04-25] VITALS (23 sets, daily range): BP systolic 107–150; BP diastolic 65–104
--- NOTE | 2017-04-25 01:27 | NUR ---
PT RESTING; EYES CLOSED. VSS. NO DISTRESS NOTED. WILL CONTINUE TO MONITOR.
--- NOTE | 2017-04-25 03:30 | NUR ---
REASSESSMENT COMPLETE. NO ACUTE CHANGES FROM PREVIOUS ASSESSMENT. VSS. NO DISTRESS NOTED. WILL CONTINUE TO MONITOR.
[2017-04-25 04:47] LABS: INR 1.13 (0.85-1.17); PROTIME 14.3 SECONDS (11.6-15.0)
[2017-04-25 04:49] LABS: ALBUMIN 2.4 g/dL (3.4-5.0); ANION GAP 4.3 mmol/L (8-16); BILIRUBIN - TOTAL 0.3 mg/dL (0.2-1.3); CALCIUM 9.2 mg/dL (8.5-10.1); CARBON DIOXIDE 35.7 mmol/L (21.0-32.0); CREATININE - SERUM 0.8 mg/dL (0.6-1.3); PROTEIN - SERUM 5.6 g/dL (6.4-8.2)
[2017-04-25 04:54] LABS: BASOPHILS 0.1 % (0-2); EOSINOPHILS 0 % (0-7); HEMATOCRIT 26.1 % (36.0-48.0); IMMATURE GRANULOCYTES 5.3 % (0-5); LYMPHOCYTES 6.4 % (15-50); MCHC 30.7 g/dL (31.0-37.0); MCV 91.3 fL (80.0-100.0); MEAN PLATELET VOLUME 10.2 fL (7.4-10.4); MONOCYTES 2.9 % (2-11); NEUTROPHILS 85.3 % (40-80); PLATELET COUNT 276 10x3/uL (130-400); RBC 2.86 10x6/uL (4.00-5.40); RDW 15.4 % (11.5-14.5); WBC 19.7 10x3/uL (4.8-10.8)
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
--- NOTE | 2017-04-25 16:42 | NUR ---
CALL DR. ONEIL [id number] REGARDING CARDIZEM GTT CONTINOUS FOR A WEEK. ORDERED TO STOP CARDIZEM GTT, CALL HIM IF HEART ELEVATES AND HE WILL INCREASE PO MEDS. CARDIZEM GTT DISCONTINUED. DRESSING ON BILATERAL LOWER LEGS CHANGED. RIGHT HAS OPEN AREA WITH SOME YELLOW IN CENTER IRREGULAR IN SHAPE HEART RATE NOW UP DOWN TO 180, [address] ONEIL
--- NOTE | 2017-04-25 19:00 | NUR ---
REPORT RECEIVED. SHIFT ASSESSMENT COMPLETED PER FLOW SHEET. PT LAYING IN BED AWAKE AND ALERT. ORIENTED TO PERSON, TIME, PLACE, AND SITUATION. S1S2 PRESENT. RADIAL AND PEDAL PULSES PALP. TELEMETRY MONITORING. BREATHING SHALLOW. 3 L 02 VIA OXYMIZER. BS ACTIVE X4. ABDOMEN SOFT TO THE TOUCH. GERMAIN CATHETER TO GRAVITY SECURED, DRAINING CLEAR YELLOW URINE. WEAKNESS NOTED TO UPPER AND LOWER EXTREMITIES. SKIN WARM AND DRY. BRUISES TO BUE. RT LOWER LEG DRESSING CDI. LT LOWER LEG SCABS/SORES AND A DRESSING CDI. LT UPPER ARM PIV PATENT, DRESSING INTACT. SEE FLOW SHEET FOR COMPLETE ASSESSMENT. DENIES NEEDS AT THIS TIME. WILL CONTINUE TO MONITOR.
--- NOTE | 2017-04-25 21:17 | NUR ---
RECEIVED REPORT, WILL ASSUME CARE OF PT, GAVE 2100 MEDS ORDER, IV-L.UPPER [id number]@ 30. GERMAIN DRAINING, PT HAS BI PAP ON, VITALS, BP-107/69, P-140, R-21, 02-86, T-97.5, BED IS LOW, SRX2, CALL LIGHT IN REACH, AT BEDSIDE,CALL LIGHT IN REACH, WILL CONTINUE PLAN OF CARE
--- NOTE | 2017-04-25 21:17 | NUR ---
REPORT GIVEN TO NURSE FLOWERS.
--- NOTE | 2017-04-25 22:32 | NUR ---
PT SLEEPING ON L.SIDE,NO DISTRESS NOTICED, BIPAP IS ON, BED IS LOW, SRX2, CALL LIGHT IN REACH, WILL CONTINUE PLAN OF CARE
--- NOTE | 2017-04-25 23:59 | NUR ---
ASSESSMENT COMPLETE, SEE FLOW SHEET, PT SLEEPING, BIPAP IS ON, BED IS LOW, SRX2, CALL LIGHT IN REACH, WILL CONTINUE PLAN OF CARE,
[2017-04-26] VITALS (24 sets, daily range): BP systolic 102–151; BP diastolic 53–106
--- NOTE | 2017-04-26 01:00 | NUR ---
PT RESTING IN BED, DENIES NEEDS AT THIS TIME. WILL CONTINUE TO MONITOR.
--- NOTE | 2017-04-26 03:00 | NUR ---
REASSESSMENT COMPLETED PER FLOW SHEET, SEE FOR DETAILS. NO ACUTE CHANGES NOTED. DENIES NEEDS. REPOSITIONED FOR COMFORT. CALL LIGHT WITHIN REACH. BED IN LOWEST POSITION. WILL CONTINUE TO MONITOR.
[2017-04-26 04:36] LABS: INR 1.25 (0.85-1.17); PROTIME 15.6 SECONDS (11.6-15.0)
[2017-04-26 04:37] LABS: CALC OSMOLALITY 298 mosm/kg (275-300); CARBON DIOXIDE 36.9 mmol/L (21.0-32.0); CHLORIDE - SERUM 104 mmol/L (98-107); CREATININE - SERUM 0.7 mg/dL (0.6-1.3); GLUCOSE 173 mg/dL (74-106); POTASSIUM - SERUM 3.5 mmol/L (3.5-5.1); SODIUM 143 mmol/L (136-145); UREA NITROGEN 41 mg/dL (7-18); eGFR NON AFRICAN AMERICAN 86 mL/min (90-120)
[2017-04-26 04:52] LABS: HEMATOCRIT 29.4 % (36.0-48.0); HEMOGLOBIN 9.2 g/dL (12-16); MCH 28.9 pg (26.0-34.0); MCHC 31.3 g/dL (31.0-37.0); MCV 92.5 fL (80.0-100.0); MEAN PLATELET VOLUME 10.3 fL (7.4-10.4); PLATELET COUNT 304 10x3/uL (130-400); RBC 3.18 10x6/uL (4.00-5.40); RDW 15.6 % (11.5-14.5); WBC 23.9 10x3/uL (4.8-10.8)
--- NOTE | 2017-04-26 05:30 | NUR ---
SM BM AT THIS TIME, PARTIAL LINEN CHANGE
[2017-04-26 05:49] LABS: ANISOCYTOSIS 1+; LYMPHOCYTES 6 % (15-50); MONOCYTES 5 % (2-11); NEUTROPHILS 88 % (40-80); PLATELET ESTIMATE NORMAL; POIKILOCYTOSIS 1+
--- NOTE | 2017-04-26 07:15 | NUR ---
PT AA&O. CURRENTLY ON BYPAP AT 40%. O2 SAT 97%. TEMETRY MONITOR HR 92 CONTROLLED A-FIB. BP 136/73 MAP 117. AXILLARY TEMP 97.5. DENIES ANY PAIN AT THIS TIME. DRESSING NOTED ON R & L LEG. SCABS NOTED ON L LEG. BRUISING NOTED ON UPPER EXTREMITIES AND NECK. GERMAIN SECURED TO RIGHT LEG. LIGHT YELLOW URINE NOTED. DEPENDENT EDEMA NOTE X 4 EXTREMITIES. WHIPPING EDEMA NOTED ON RIGHT EXTREMITY. PERIPHERAL IV ON L UPPER ARM WITH NS INFUSING AT 30ML/HR. NO NEEDS AT THIS TIME. WILL CONTINUE TO MONITOR.
--- NOTE | 2017-04-26 09:21 | NUR ---
ASSESSED LAB WORK. POTASSIUM 4.4. NO COVERAGE NEEDED PER PROTOCOL.
--- NOTE | 2017-04-26 09:50 | NUR ---
PHYSICAL THERAPY TRANSFERRED PT TO CHAIR. PT REMAINS ON BIPAP. 02 SAT AT 98%. PT DENIES OTHER NEEDS AT THIS TIME.
--- NOTE | 2017-04-26 10:32 | NUR ---
PT SITTING IN CHAIR. OF BIPAP. ON 3L O2 VIA NASAL CANULA. 02 SAT AT 96% UNCONTROLLED A-FIB IN LOW 100S. PT DENIES ANY PAIN AT THIS TIME. WILL CONTINUE TO MONITOR.
--- NOTE | 2017-04-26 10:51 | NUR ---
NUTRITION F/U CHART REVIEWED. PT UP TO CHAIR. NURSING REPORTS PT WITH ~10% INTAKE BREAKFAST AND 100% INTAKE ENSURE. WILL CONTINUE TO PROVIDE DIET, ENSURE. MONITOR PO INTAKE. RD FOLLOWING
--- NOTE | 2017-04-26 11:15 | NUR ---
PT SITTING IN CHAIR. MOUTH CARE PROVIDED. O2 SAT 94% WITH 3L O2 VIA NASAL CANULA. HR BOUNCING FROM LOW 100S TO 117. SCHEDULE DILTIAZEM GIVEN. WILL CONTINUE TO MONITOR.
--- NOTE | 2017-04-26 11:47 | NUR ---
PHYSICAL THERAPY TRANSFERRED PT BACK TO BED. PILLOWS PLACED UNDER HER RIGHT ARM AND BOTH LEGS. WILL CONTINUE TO MONITOR.
--- NOTE | 2017-04-26 12:15 | NUR ---
HR BOUNCING AROUND FROM 111 TO 138. IT INCREASES UP INTO THE 130S BUT GOES BACK DOWN QUICKLY. IS IN ROOM HELPING PT EAT. LASIX WAS GIVEN PER ORDERS. LEVOFLOXACIN INFUSING AT THIS TIME. NO OTHER NEEDS. WILL CONTINUE TO MONITOR.
--- NOTE | 2017-04-26 13:35 | NUR ---
BM NOTED. BROWN, VERY SOFT STOOL. PERICARE PROVIDED. GERMAIN CARE PROVIDED. PT PULLED UP IN BED. CURRENTLY ON HER BACK. HR STILL FLUCTUATING FROM UPPER 90S TO UPPER 130S. O2 SAT 99% WITH 3L O2 VIA NASAL CANULA. NO OTHER NEEDS AT THIS TIME.
--- NOTE | 2017-04-26 14:08 | NUR ---
HR RATE HAS INCREASE TO 150. COMES BACK DOWN TO 120S THEN TO 112. PAGED DR. WILEY TO NITIFY OF HR. PT REPORTS NO CHEST PAIN. O2 SAT 98%. WILL CONTINUE TO MONITOR.
--- NOTE | 2017-04-26 14:19 | NUR ---
PT PLACED ON BIPAP TO HELP CONTROL HER HR. WILL CONTINUE TO MONITOR.
--- NOTE | 2017-04-26 16:14 | NUR ---
PT ASLEEP. BIPAP CURRENTLY ON. HEART RATE FLUCTUATING BETWEEN 87 AND 123. NO OTHER NEEDS AT THIS TIME.
--- NOTE | 2017-04-26 17:22 | NUR ---
PT ON BIPAP AT THIS TIME. HR GOING UP TO MID 120S. DILTIAZEM GIVEN PER ORDERS. NO OTHER NEEDS AT THIS TIME.
--- NOTE | 2017-04-26 18:42 | NUR ---
20 GAUGE PERIPHERAL IV STARTED ON LEFT WRIST X 2 ATTEMPTS. MORPHINE 4MG IV GIVEN FOR PAIN 05/15. PT STATED THAT HE FELT LIKE HE NEEDED TO VOID. REMINDED HIM THAT HE HAS A GERMAIN IN PLACE. HE STATED THAT HE FELT PRESSURE IN HIS BLADDER. USED BLADDER SCAN TO SEE URINE AMOUNT IN BLADDER. ABOUT 40ML IN BLADDER. GERMAIN DRAINING. PALPATED ABDOMEN TO SEE IF BLADDER WAS DISTENDED. BLADDER FELT SOFT. WILL CONTINUE TO MONITOR.
--- NOTE | 2017-04-26 19:00 | NUR ---
REPORT RECEIVED. SHIFT ASSESSMENT COMPLETED PER FLOW SHEET. PT LAYING IN BED AWAKE AND ALERT. PUT PT ON BIPAP AT 40% PER REQUEST. RADIAL AND PEDAL PULSES PALP. TELEMETRY MONITORING RATE OF 131. WEEPING EDEMA NOTED ON RUE, WHITE PAD CHANGED. DIMINISHED BREATH SOUNDS ALL LOBES. LT UPPER ARM PIV INFUSING NS AT 30 MLS/HR, DRESSING CDI. BS ACTIVE X4. GERMAIN CATHETER TO GRAVITY SECURED DRAINING CLEAR YELLOW URINE. SEE FLOW SHEET FOR COMPLETE ASSESSMENT. CALL LIGHT WITHIN REACH. BED IN LOWEST POSITION. WILL CONTINUE TO MONITOR.
--- NOTE | 2017-04-26 20:37 | NUR ---
DR. AREVALO CALLED TO SEE IF ABLE TO MOVE PATIENT OUT OF ICU. DENIES NEED TO MOVE CRITICAL PATIENT THIS LATE IN THE DAY. SO NO TO THE TRANSFER AT THIS TIME.
--- NOTE | 2017-04-26 21:05 | NUR ---
AT BEDSIDE. UPDATE GIVEN. QUESTIONS ANSWERED. PT DENIES NEEDS AT THIS TIME. CALL LIGHT WITHIN REACH. BED IN LOWEST POSITIO. WILL CONTINUE TO MONITOR.
--- NOTE | 2017-04-26 23:00 | NUR ---
REASSESSMENT COMPLETED PER FLOW SHEET. NO ACUTE CHANGES NOTED. DENIES NEEDS. WILL CONTINUE TO MONITOR.
[2017-04-27] VITALS (25 sets, daily range): BP systolic 74–146; BP diastolic 44–107
--- NOTE | 2017-04-27 00:10 | NUR ---
PT LAYING IN BED RESTING. DENIES NEEDS AT THIS TIME. CALL LIGHT WITHIN REACH. WILL CONTINUE TO MONITOR.
--- NOTE | 2017-04-27 02:05 | NUR ---
ASSISSTED PT WITH ORAL CARE. MOISTURIZER APPLIED. SOFT DARK BROWN BM NOTED, PT CLEANED. PARTIAL BED LINEN CHANGE. REPOSITIONED FOR COMFORT. WILL CONTINUE TO MONITOR.
--- NOTE | 2017-04-27 03:00 | NUR ---
REASSESSMENT COMPLETED PER FLOW SHEET, SEE FOR DETAILS. PT REPOSITIONED FOR COMFORT. DENIES NEEDS AT THIS TIME. BED IN LOWEST POSITION. WILL CONTINUE TO MONITOR.
[2017-04-27 04:32] LABS: HEMATOCRIT 28.4 % (36.0-48.0); HEMOGLOBIN 8.8 g/dL (12-16); MCH 28.8 pg (26.0-34.0); MCV 92.8 fL (80.0-100.0); MEAN PLATELET VOLUME 10.3 fL (7.4-10.4); PLATELET COUNT 282 10x3/uL (130-400); RBC 3.06 10x6/uL (4.00-5.40); RDW 15.6 % (11.5-14.5); WBC 24.4 10x3/uL (4.8-10.8)
[2017-04-27 04:35] LABS: CALC OSMOLALITY 299 mosm/kg (275-300); CALCIUM 9.1 mg/dL (8.5-10.1); CARBON DIOXIDE 37.3 mmol/L (21.0-32.0); CHLORIDE - SERUM 103 mmol/L (98-107); CREATININE - SERUM 0.7 mg/dL (0.6-1.3); EOSINOPHILS 1 % (0-7); GLUCOSE 168 mg/dL (74-106); LYMPHOCYTES 7 % (15-50); MONOCYTES 3 % (2-11); NEUTROPHILS 85 % (40-80); SODIUM 143 mmol/L (136-145); UREA NITROGEN 44 mg/dL (7-18); eGFR NON AFRICAN AMERICAN 86 mL/min (90-120)
[2017-04-27 04:36] LABS: PLATELET ESTIMATE NORMAL
[2017-04-27 04:37] LABS: PROTIME 18.7 SECONDS (11.6-15.0)
[2017-04-27 04:41] LABS: POTASSIUM - SERUM 3.6 mmol/L (3.5-5.1)
[2017-04-27 04:48] LABS: INR 1.56 (0.85-1.17)
--- NOTE | 2017-04-27 05:00 | NUR ---
PT LAYING IN BED DENIES NEEDS AT THIS TIME. NO DISTRESS NOTED. BED IN LOWEST POSITION. WILL CONTINUE TO MONITOR.
--- NOTE | 2017-04-27 09:00 | NUR ---
UP TO CHAIR WITH ASSISTANCE FROM PT. O2 INCREASED TO 4 LPM VIA NASAL CANNULA.
--- NOTE | 2017-04-27 11:00 | NUR ---
BACK TO BED WITH ASSISTANCE FROM PT. GERMAIN CARE DONE.
--- NOTE | 2017-04-27 13:00 | NUR ---
RESTING QUIETLY. NO DISTRESS NOTED.
--- NOTE | 2017-04-27 14:00 | NUR ---
PLACED ON BIPAP AT 40% FIO2 PER PATIENT REQUEST. NO ACUTE DISTRESS NOTED.
--- NOTE | 2017-04-27 14:31 | NUR ---
PLACED BACK ON NC @ 4LPM PER PATIENT REQUEST.
--- NOTE | 2017-04-27 17:00 | NUR ---
DR. POWELL NOTIFIED OF PERSISTANT HR 130S TO 160S. NEW ORDERS REC'D.
--- NOTE | 2017-04-27 17:03 | NUR ---
LOPRESSOR 5MG GIVEN IV FOR SUSTAINED UCAF > 120.
--- NOTE | 2017-04-27 17:45 | NUR ---
CARDIZEM 15MG GIVEN IV FOR CONTINUED HR > 120.
--- NOTE | 2017-04-27 19:30 | NUR ---
RECEIVED CARE OF PT, ASSESSMENT PER FLOWSHEET. PT INTUBATED AND SEDATED ON VENT, 40% FIO2, OGT TO LIWS WITH DARK BOWN DRAINAGE IN TUBING-PLACEMENT VERIFIED WITH SMALL AIR BOLUS, CRACKLES AUSCULTATED BILATERALLY WITH DIM BASES, HR ST ON MONITOR, RT GROIN A-LINE FLUSHED AND ZEROED, GTT'S INFUSING PER FLOWSHEET TO RT HAND PIV, GERMAIN CATH PATENT WITH CONCENTRATED URINE IN COLLECTION CHAMBER, ORAL CARE PROVIDED, POSITIONED FOR COMFORT, WILL MONITOR.
--- NOTE | 2017-04-27 19:45 | NUR ---
RECEIVED CARE OF PT, ASSESSMENT PER FLOWSHEET. PT ORIENTED X 4, ON 4L O2 VIA NC, HR CONTROLLED ATRIAL FIB ON MONITOR AT A RATE OF 91, PPP, SKIN ASSESSMENT PER FLOWSHEET, GENERALIZED EDEMA NOTED WITH WEEPING OF RUE, GERMAIN CATH PATENT WITH CLEAR YELLOW URINE IN TUBING, BS HYPO X 4, ABD DISTENDED-DENIES PAIN WITH PALPATION. ASSISTED TO COMFORTABLE POSITION, BED LOW, CALL LIGHT IN REACH, DENIES ANY NEEDS AT THIS TIME.
--- NOTE | 2017-04-27 21:15 | NUR ---
PT RESTING IN BED WITH EYES CLOSED, VSS. PT IN FOR VISITATION, STATES HE DOESN'T WISH TO DISTURB HER AT THIS TIME. ALL QUESTIONS ANSWERED, DENIES ANY NEEDS, CONT TO MONITOR.
--- NOTE | 2017-04-27 23:15 | NUR ---
REASSESSMENT PER FLOWSHEET, NO ACUTE CHANGES NOTED AT THIS DEANNA, REMAINS ST ON CM, VSS, CONT POC.
[2017-04-28] VITALS (24 sets, daily range): BP systolic 81–150; BP diastolic 58–124
--- NOTE | 2017-04-28 01:20 | NUR ---
PT AROUSES EASILY TO VOICE, REPOSITIONED FOR COMFORT SUPPORTED WITH PILLOWS, BIPAP IN PLACE, DENIES ANY NEEDS AT THIS TIME. CALL LIGHT IN REACH, BED LOW, VSS.
--- NOTE | 2017-04-28 03:00 | NUR ---
REASSESSMENT PER FLOWSHEET, NO ACUTE CHANGES NOTED AT THIS TIME, VSS, CONT POC.
[2017-04-28 04:30] LABS: BASOPHILS 0.2 % (0-2); EOSINOPHILS 0 % (0-7); HEMATOCRIT 27.4 % (36.0-48.0); HEMOGLOBIN 8.5 g/dL (12-16); IMMATURE GRANULOCYTES 5.4 % (0-5); LYMPHOCYTES 3.4 % (15-50); MCH 29.1 pg (26.0-34.0); MCV 93.8 fL (80.0-100.0); MEAN PLATELET VOLUME 10.6 fL (7.4-10.4); MONOCYTES 3.7 % (2-11); NEUTROPHILS 87.3 % (40-80); PLATELET COUNT 290 10x3/uL (130-400); RBC 2.92 10x6/uL (4.00-5.40); WBC 25.1 10x3/uL (4.8-10.8)
[2017-04-28 04:43] LABS: CALC OSMOLALITY 294 mosm/kg (275-300); CALCIUM 9.1 mg/dL (8.5-10.1); CARBON DIOXIDE 34.9 mmol/L (21.0-32.0); CHLORIDE - SERUM 104 mmol/L (98-107); CREATININE - SERUM 0.7 mg/dL (0.6-1.3); GLUCOSE 168 mg/dL (74-106); POTASSIUM - SERUM 3.3 mmol/L (3.5-5.1); SODIUM 140 mmol/L (136-145); UREA NITROGEN 47 mg/dL (7-18); eGFR NON AFRICAN AMERICAN 86 mL/min (90-120)
[2017-04-28 05:02] LABS: INR 2.02 (0.85-1.17); PROTIME 22.9 SECONDS (11.6-15.0)
--- NOTE | 2017-04-28 05:28 | NUR ---
AM LABS REVIEWED, 1 OF 4 10 MEQ KCL RIDERS INITIATED TO TREAT K+ OF 3.3 PER ELECTROLYTE PROTOCOL.
--- NOTE | 2017-04-28 07:40 | NUR ---
ASSESSMENT COMPLETE. TAKEN OFF BIPAP AND PLACED ON O2 VIA NC @ 4 lpm.
--- NOTE | 2017-04-28 09:00 | NUR ---
RESTING QUIETLY. NO ACUTE DISTRESS NOTED.
--- NOTE | 2017-04-28 10:30 | NUR ---
COMPLETE BATH AND LINEN CHANGED. STASIS ULCERS TO LOWER LEGS CLEANED AND COVERED WITH KERLIX GAUZE.
--- NOTE | 2017-04-28 11:30 | NUR ---
UP TO CHAIR WITH ASSISTANCE FROM PT.
--- NOTE | 2017-04-28 13:15 | NUR ---
BACK TO BED WITH ASSISTANCE FROM PT. NO DISTRESS NOTED.
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
--- NOTE | 2017-04-28 21:08 | NUR ---
DR ARBOLEDA PAGED REGARDING UNCONTROLLED ATRIAL FIB WITH RATE HIGH 150-160'S, ORDERS RECEIVED.
--- NOTE | 2017-04-28 21:40 | NUR ---
PT DAUGHTER AT BEDSIDE, PT RESTING WITH EYES CLOSED-UPDATE PROVIDED AND ALL QUESTIONS ANSWERED.
[2017-04-29] VITALS (24 sets, daily range): BP systolic 67–137; BP diastolic 47–93
--- NOTE | 2017-04-29 01:49 | NUR ---
WATER GIVEN, ORAL CARE PROVIDED,PLACED PT BACK ON BIPAP PER REQUEST. HR ATRIAL FIB IN LOW 100'S ON CM, CONT TO MONITOR.
--- NOTE | 2017-04-29 03:15 | NUR ---
REASSESSMENT PER FLOWSHEET. PT REPOSITIONED FOR COMFORT, ORAL CARE PROVIDED, SUPPORTED WITH PILLOWS, CONT POC.
[2017-04-29 03:57] LABS: ANION GAP 1.2 mmol/L (8-16); CALCIUM 8.8 mg/dL (8.5-10.1); CARBON DIOXIDE 37.2 mmol/L (21.0-32.0); CREATININE - SERUM 0.8 mg/dL (0.6-1.3)
[2017-04-29 03:59] LABS: POTASSIUM - SERUM 3.4 mmol/L (3.5-5.1)
[2017-04-29 04:03] LABS: HEMATOCRIT 26.5 % (36.0-48.0); HEMOGLOBIN 8.1 g/dL (12-16); MCH 29.2 pg (26.0-34.0); MCHC 30.6 g/dL (31.0-37.0); MCV 95.7 fL (80.0-100.0); MEAN PLATELET VOLUME 10.7 fL (7.4-10.4); PLATELET COUNT 257 10x3/uL (130-400); RBC 2.77 10x6/uL (4.00-5.40); RDW 16.2 % (11.5-14.5); WBC 22.4 10x3/uL (4.8-10.8)
[2017-04-29 04:10] LABS: INR 2.09 (0.85-1.17); PROTIME 23.5 SECONDS (11.6-15.0)
--- NOTE | 2017-04-29 04:52 | NUR ---
CARDIZEM DOSE HELD DUE TO HEART RATE IN 60'S AND LOW BP, WILL MONITOR CLOSELY.
[2017-04-29 05:02] LABS: BASOPHILS 2 % (0-2); EOSINOPHILS 1 % (0-7); LYMPHOCYTES 2 % (15-50); MONOCYTES 4 % (2-11); NEUTROPHILS 89 % (40-80); PLATELET ESTIMATE NORMAL
--- NOTE | 2017-04-29 19:20 | NUR ---
ASSESSMENT COMPLETE. S1S2; IRREGULAR. UNCONTROLLED AFIB SHOWING ON MONITOR. MONITORING BP CLOSELY. MAP ABOVE 65. RR RHONCHI NOTED BILATERALLY TO UPPER AND MID LOBES; DIMINISHED BILATERALLY THROUGHOUT ALL LOBES. PERRLA. AAO. BIPAP AT 40%. PIV TO LEFT UPPER ARM; PATENT. SEE IV FLOW SHEET. WEAKNESS NOTED TO EXTREMITIES X4. SCABS/SORES, SKIN TEARS, WEEPING EDEMA NOTED TO UPPER EXTREMITIES X2. SCABS/SORES NOTED TO LOWER EXTREMITIES X2, DRESSING CDI DATED 04/29/17.
--- NOTE | 2017-04-29 21:30 | NUR ---
PT UNABLE TO SWALLOW WATER; HAD TO SUCTION PT. COULD NOT PULL WATER THROUGH THE STRAW. IMMEDIATELY FELL BACK ASLEEP. WOULD FALL ASLEEP WHILE SPEAKING TO PT. WILL CONTINUE TO MONITOR.
--- NOTE | 2017-04-29 22:07 | NUR ---
SPOKE WITH AND DAUGHTER (LETICIA) UPDATING ON PT CONDITIONS. CONCERNS NOTED ON BP; LETHARGIC; AND DIFFICULTY SWALLOWING.
--- NOTE | 2017-04-29 23:05 | NUR ---
REASSESSMENT COMPLETE. VSS. NO DISTRESS NOTED. PT LETHARGIC DIFFICULTY AROUSING; WILL AROUSE TO SPEECH; WILL FALL BACK ASLEEP QUICKLY.
[2017-04-30] VITALS (24 sets, daily range): BP systolic 93–143; BP diastolic 57–93
--- NOTE | 2017-04-30 01:10 | NUR ---
PT REMAINS LETHARGIC; DIFFICULTY STAYING AWAKE AND ALERT. DIFFICULTY UNDERSTANDING SPEECH; SOFT. WILL CONTINUE TO MONITOR.
--- NOTE | 2017-04-30 03:15 | NUR ---
REASSESSMENT COMPLETE. NO ACUTE CHANGES FROM PREVIOUS ASSESSMENT. PT REMAINS LETHARGIC. WILL CONTINUE TO MONITOR.
[2017-04-30 03:27] LABS: BASOPHILS 0.2 % (0-2); EOSINOPHILS 0.1 % (0-7); HEMATOCRIT 27.7 % (36.0-48.0); HEMOGLOBIN 8.5 g/dL (12-16); IMMATURE GRANULOCYTES 3.1 % (0-5); LYMPHOCYTES 4.9 % (15-50); MCHC 30.7 g/dL (31.0-37.0); MCV 94.5 fL (80.0-100.0); MEAN PLATELET VOLUME 10.7 fL (7.4-10.4); MONOCYTES 2.6 % (2-11); NEUTROPHILS 89.1 % (40-80); PLATELET COUNT 228 10x3/uL (130-400); RBC 2.93 10x6/uL (4.00-5.40); RDW 16.2 % (11.5-14.5)
[2017-04-30 03:39] LABS: CALC OSMOLALITY 298 mosm/kg (275-300); CALCIUM 9.5 mg/dL (8.5-10.1); CARBON DIOXIDE 34.5 mmol/L (21.0-32.0); CHLORIDE - SERUM 105 mmol/L (98-107); CREATININE - SERUM 0.7 mg/dL (0.6-1.3); GLUCOSE 156 mg/dL (74-106); POTASSIUM - SERUM 5.1 mmol/L (3.5-5.1); SODIUM 141 mmol/L (136-145); UREA NITROGEN 55 mg/dL (7-18); eGFR NON AFRICAN AMERICAN 86 mL/min (90-120)
--- NOTE | 2017-04-30 08:29 | NUR ---
PT ON BIPAP AT 35% FI02, NODS HEAD TO ANSWER QUESTIONS. ALL ALARMS SET. HR [address] FRANKLIN ROUNDED THIS AM. DISCUSSED DECLINING NUTRITIONAL STATUS AND DECONDITIONING STATUS. DR FRANKLIN REPORTS THAT POC IS DISCUSS W/ FAMILY.
--- NOTE | 2017-04-30 11:04 | NUR ---
PT SAT UP IN CHAIR 1 HR. PTS FED HER ENSURE AND APPLE SAUCE. BACK TO BED W/PT. DR WOLFE HERE. PAGED CARDIOLOGY RE: UCAF.
--- NOTE | 2017-04-30 11:20 | NUR ---
NUTRITION F/U CHART REVIEWED. VISIT WITH PT SPOUSE.HE REPORTS PT PO INTAKE HAS DECREASED THE PAST FEW DAYS. DOES CONTINUE TO DRINK ENSURE. WILL CONTINUE TO PROVIDE DIET, ENSURE. RD FOLLOWING
--- NOTE | 2017-04-30 14:39 | NUR ---
PT SOB AFTER TAKEN OFF OF BIPAP AND DURING MEALS. PT AGREES TO HAVE BIPAP PLACED BACK ON BOTH AFTER BREAKFAST AND LUNCH TODAY.
--- NOTE | 2017-04-30 18:41 | NUR ---
PARTIAL BATH AND LINEN CHANGE. FC CARE COMPLETE. DAUGHTER AT BS. VSS.
--- NOTE | 2017-04-30 19:20 | NUR ---
ASSESSMENT COMPLETE. S1S2. NSR SHOWING ON MONITOR. DAUGHTER LETICIA AT BEDSIDE. RR WHEEZE NOTED ON BILATERALLY IN UPPER AND MID LOBES; DIMINISHED BILATERALLY IN LOWER LOBES. FOLLOWS COMMANDS. ON BIPAP @ 40%. PERRLA. SPEECH SOFT. AFEBRILE. SKIN COOL; PALE; THIN. GENERALIZED BRUISING AND SKIN TEARS NOTED. DRESSINGS CDI TO RIGHT/LEFT LEG. WEEPING EDEMA NOTED TO UPPER EXTREMITIES X2.
--- NOTE | 2017-04-30 21:30 | NUR ---
AT BEDSIDE. UPDATE GIVEN. QUESTIONS ANSWERED.
--- NOTE | 2017-04-30 22:29 | NUR ---
PT REMAINED ON A BREAK FROM BIPAP FOR 29 MINUTES; ON NC AT 4L. PT ASKED FOR BIPAP TO BE PLACED BACK ON.
--- NOTE | 2017-04-30 23:00 | NUR ---
REASSESSMENT COMPLETE. NO ACUTE CHANGES FROM PREVIOUS ASSESSMENT. WILL CONTINUE POC.
[2017-05-01] VITALS (24 sets, daily range): BP systolic 81–149; BP diastolic 50–91
--- NOTE | 2017-05-01 01:40 | NUR ---
PT RESTING; EYES CLOSED. BIPAP IN PLACE. WILL CONTINUE TO MONITOR. VSS. NO DISTRESS NOTED.
--- NOTE | 2017-05-01 03:30 | NUR ---
REASSESSMENT COMPLETE. NO ACUTE CHANGES FROM PREVIOUS ASSESSMENT. VSS. NO DISTRESS NOTED. WILL CONTINUE TO MONITOR.
[2017-05-01 04:17] LABS: HEMATOCRIT 29.4 % (36.0-48.0); HEMOGLOBIN 8.8 g/dL (12-16); INR 1.85 (0.85-1.17); PROTIME 21.4 SECONDS (11.6-15.0); RBC 3.02 10x6/uL (4.00-5.40); WBC 26.1 10x3/uL (4.8-10.8)
[2017-05-01 04:18] LABS: BASOPHILS 0.1 % (0-2); EOSINOPHILS 0.1 % (0-7); IMMATURE GRANULOCYTES 3.8 % (0-5); LYMPHOCYTES 3.3 % (15-50); MCH 29.1 pg (26.0-34.0); MCHC 29.9 g/dL (31.0-37.0); MCV 97.4 fL (80.0-100.0); MEAN PLATELET VOLUME 10.9 fL (7.4-10.4); NEUTROPHILS 87.7 % (40-80); PLATELET COUNT 210 10x3/uL (130-400); RDW 16.6 % (11.5-14.5)
[2017-05-01 04:25] LABS: ALBUMIN 2.3 g/dL (3.4-5.0); ANION GAP 5.7 mmol/L (8-16); BILIRUBIN - TOTAL 0.4 mg/dL (0.2-1.3); CALCIUM 9.1 mg/dL (8.5-10.1); CARBON DIOXIDE 32.9 mmol/L (21.0-32.0); CREATININE - SERUM 0.8 mg/dL (0.6-1.3); MAGNESIUM - SERUM 2.4 mg/dL (1.8-2.4); PHOSPHOROUS 3.9 mg/dL (2.5-4.9); POTASSIUM - SERUM 4.6 mmol/L (3.5-5.1); PROTEIN - SERUM 5.3 g/dL (6.4-8.2)
--- NOTE | 2017-05-01 06:08 | NUR ---
PT HAD SMEAR OF BM. PT CLEANED. COMPLETE LINEN CHANGE. PT C/O BEING COLD. AFEBRILE.
--- NOTE | 2017-05-01 13:23 | NUR ---
PT FED BY PT'S . PT NODS HEAD YES ASKING ABOUT MASK PUT BACK ON. BIPAP REPLACED PER PT WISHES.
--- NOTE | 2017-05-01 19:15 | NUR ---
ASSESSMENT COMPLETE. S1S2. NSR SHOWING ON MONITOR. RR SHALLOW; SOB NOTED. WHEEZE NOTED IN UPPER LOBES BILATERALLY; DIMINISHED BILATERALLY THROUGHOUT ALL LOBES. AAO. FAMILY AT BEDSIDE. GENERALIZED SWELLING. PERRLA. BIPAP @ 35%.
--- NOTE | 2017-05-01 21:30 | NUR ---
NO VISITORS DURING VISITATION.
--- NOTE | 2017-05-01 22:15 | NUR ---
PT HAD A SMALL BM; PT CLEANED. LINENS CHANGED.
--- NOTE | 2017-05-01 23:10 | NUR ---
REASSESSMENT COMPLETE. NO ACUTE CHANGES FROM PREVIOUS ASSESSMENT. VSS. NO DISTRESS NOTED. WILL CONTINUE TO MONITOR.
[2017-05-02] VITALS (24 sets, daily range): BP systolic 97–157; BP diastolic 53–89
--- NOTE | 2017-05-02 01:47 | NUR ---
PT RESTING; EYES CLOSED. MONITORING BP CLOSELY. NOTED TRENDING DOWN IN BP. WILL CONTINUE TO MONITOR CLOSELY.
--- NOTE | 2017-05-02 03:00 | NUR ---
REASSESSMENT COMPLETE. NO ACUTE CHANGES FROM PREVIOUS ASSESSMENT. WILL FOLLOW POC
[2017-05-02 05:10] LABS: BASOPHILS 0.1 % (0-2); EOSINOPHILS 0.1 % (0-7); HEMATOCRIT 25.6 % (36.0-48.0); HEMOGLOBIN 7.9 g/dL (12-16); IMMATURE GRANULOCYTES 2.4 % (0-5); LYMPHOCYTES 3.7 % (15-50); MCHC 30.9 g/dL (31.0-37.0); MCV 94.1 fL (80.0-100.0); MEAN PLATELET VOLUME 11.4 fL (7.4-10.4); MONOCYTES 3.7 % (2-11); PLATELET COUNT 205 10x3/uL (130-400); RBC 2.72 10x6/uL (4.00-5.40); RDW 16.7 % (11.5-14.5)
[2017-05-02 05:20] LABS: ALBUMIN 2.1 g/dL (3.4-5.0); ALKALINE PHOSPHATASE 59 U/L (46-116); ALT (SGPT) 165 U/L (10-68); CALC OSMOLALITY 296 mosm/kg (275-300); CALCIUM 8.6 mg/dL (8.5-10.1); CARBON DIOXIDE 36.1 mmol/L (21.0-32.0); CHLORIDE - SERUM 105 mmol/L (98-107); CREATININE - SERUM 0.7 mg/dL (0.6-1.3); GLUCOSE 111 mg/dL (74-106); PHOSPHOROUS 3.7 mg/dL (2.5-4.9); PROTEIN - SERUM 4.4 g/dL (6.4-8.2); SODIUM 142 mmol/L (136-145); UREA NITROGEN 49 mg/dL (7-18); eGFR NON AFRICAN AMERICAN 86 mL/min (90-120)
[2017-05-02 05:21] LABS: POTASSIUM - SERUM 3.5 mmol/L (3.5-5.1)
--- NOTE | 2017-05-02 07:00 | NUR ---
REPORT RECEIVED FROM OFF GOING RN. PT IN ROOM ON BIPAP AT 35% O2. SEE FLOW SHEET FOR ASSESSMENT. VSS. CALL LIGHT IN REACH. WILL CONT POC
--- NOTE | 2017-05-02 09:50 | NUR ---
PT ASSISTED PT TO CHAIR AT BEDSIDE. PT IN ROOM FEEDING SELF. BED LINEN ESTER. WILL CONT POC
--- NOTE | 2017-05-02 12:55 | NUR ---
Long discussion with spouse. Discussed POC, progress, prognosis. Discussed hospice options including inpatient, nursing facility & home. He states physicians told him yesterday they were going to try and wean her oxygen down & to wait a couple of days before making any decisions. Answered all questions. CM will follow and assist as needed.
--- NOTE | 2017-05-02 13:18 | NUR ---
PT BACK IN BED AND PLACE BACK ON BIPAP. NOW RESTING WITH EYES CLOSED WITH 0 S/SX OF DISTRESS/DISCOMFORT NOTED. VSS. CALL LIGHT IN REACH. WILL CONT POC
--- NOTE | 2017-05-02 15:09 | NUR ---
NUTRITION F/U PT VISIT, SPOUSE IN ROOM. STATES PT WILL ONLY EAT IF HE ASSISTS. PT WILL NOT EAT BY HERSELF AT THIS TIME. < 25% INTAKE BREAKFAST. WILL CONTINUE TO PROVIDE DIET, MONITOR PO INTAKE. RD FOLLOWING
--- NOTE | 2017-05-02 17:00 | NUR ---
MEAL TRAY PROVIDED. HOB ELEVATED AND PT ABLE TO FEED SELF. VSS. NO NEEDS AT THIS TIME. WILL CONT POC
--- NOTE | 2017-05-02 19:40 | NUR ---
SHIFT ASSESSMENT COMPLETE. PT IS A&O X4 WITH NO COMPLAINTS OF PAIN. NC @ 4 L/MIN. V/S: HR 73 NORMAL SINUS, RR 15, BP 128/77, TEMP 97.5, AXILLARY, O2 SAT 97%. PIV TO L UPPER ARM INFUSING NS @ 30 ML/HR. S1S2 AUDIBLE. WHEEZES HEARD BILAT THROUGHOUT ALL LOBES. ABD DISTENDED AND SOFT, NON TENDER TO TOUCH, BS ACTIVE X4. RADIAL AND PEDAL PULSES PALP. LEFT AND RIGHT ARMS HAVE GENERALIZED BRUISING. GERMAIN CATH INTACT DRAINING CLEAR YELLOW URINE. LEFT AND RIGHT LEGS HAVE DRESSINGS ON THEM THAT ARE CDI WITH NO DRAINAGE NOTED. REFILLED REFRESHMENTS. NO FURTHER REQUESTS AT THIS TIME. WILL CONT TO MONITOR.
--- NOTE | 2017-05-02 21:30 | NUR ---
PT'S AT BEDSIDE. SHE STATES THAT SHE WOULD LIKE TO GO ON BIPAP. PUT BIPAP ON. O2 SAT 96%, BREATHING IS UNLABORED. REPOSITIONED FOR COMFORT. CALL LIGHT IN REACH. BED IN LOWEST POSITION. WILL CONT TO MONITOR.
--- NOTE | 2017-05-02 23:30 | NUR ---
REASSESSMENT COMPLETE. HR 89 FLIPPING FROM CONTROLLED TO UNCONTROLLED A-FIB. SHE IS ON THE BIPAP WITH NO COMPLAINTS OF PAIN OR WEAKNESS. BETAPACE ADMINISTERED AT 2100. NO FURTHER CHANGES NOTED. WILL CONT WITH POC.
[2017-05-03] VITALS (26 sets, daily range): BP systolic 81–143; BP diastolic 62–104
--- NOTE | 2017-05-03 01:25 | NUR ---
PT RESTING PEACEFULLY WITH NO SIGNS OF DISTRESS NOTED. HR IS CURRENTLY 78 BPM, CONTROLLED A-FIB. NO FURTHER CHANGES. CALL LIGHT IN REACH. BED IN LOWEST POSITION. WILL CONT WITH POC.
--- NOTE | 2017-05-03 03:30 | NUR ---
PT RESTING PEACEFULLY WITH BIPAP ON. HR 113 UNCONTROLLED A-FIB. BP 106/76. SHE DENIES ANY PAIN OR DISCOMFORT AT THIS TIME. PARTIAL LINEN CHANGE DUE TO WEEPING EDEMA IN UPPER EXT. NO FURTHER REQUESTS. REPOSITIONED FOR COMFORT. WILL CONT WITH POC.
--- NOTE | 2017-05-03 05:30 | NUR ---
REPOSITIONED FOR COMFORT. SHE DENIES ANY REQUESTS. VSS. CALL LIGHT IN REACH. BED IN LOWEST POSITION. WILL CONT WITH POC.
[2017-05-03 05:33] LABS: ANION GAP 5.8 mmol/L (8-16); CALCIUM 8.8 mg/dL (8.5-10.1); CARBON DIOXIDE 36.7 mmol/L (21.0-32.0); CREATININE - SERUM 0.8 mg/dL (0.6-1.3); POTASSIUM - SERUM 3.5 mmol/L (3.5-5.1)
[2017-05-03 05:35] LABS: BASOPHILS 0.1 % (0-2); EOSINOPHILS 0.2 % (0-7); HEMATOCRIT 28.9 % (36.0-48.0); HEMOGLOBIN 8.9 g/dL (12-16); IMMATURE GRANULOCYTES 2.4 % (0-5); LYMPHOCYTES 3.5 % (15-50); MCH 29.4 pg (26.0-34.0); MCHC 30.8 g/dL (31.0-37.0); MCV 95.4 fL (80.0-100.0); MEAN PLATELET VOLUME 11.8 fL (7.4-10.4); MONOCYTES 3.4 % (2-11); NEUTROPHILS 90.4 % (40-80); PLATELET COUNT 204 10x3/uL (130-400); RBC 3.03 10x6/uL (4.00-5.40); RDW 16.7 % (11.5-14.5)
--- NOTE | 2017-05-03 07:00 | NUR ---
REPORT RECEIVED FROM OFF GOING NURSE. SEE ASSESSMENT FLOW SHEET. PT ABLE TO FOLLOW COMMANDS BUT HAS LITTLE ENERGY. DRESSING TO BLE CHANGED. C/D/I. BED PADS CHANGED DUE TO WHEEPING EDEMA AND PERICARE PREFORMED DUE TO A SMALL BM. RECIEVED IN REPORT ABOUT PT GOING INTO AFIB LAST NIGHT. PT REMAINS IN CONTROLED AFIB. DR FRANKLIN AT BESIDE AND INFORMED. 0 S/SX OF DISTRESS/DISCOMFORT NOTED. CALL LIGHT IN REACH. WILL CONT POC.
--- NOTE | 2017-05-03 12:51 | NUR ---
MECH SOFT DIET GIVEN TO PT. NO S/SX OF DYSPAGIA NOTED. STILL WAITING FOR REGULAR ROOM.
--- NOTE | 2017-05-03 13:00 | NUR ---
FED PT LUNCH. CONSUMED 20-30% OF LUNCH. REQUEST CREAM OF CHICKEN SOUP AND SHE RECIEVED IT. DISCUSSED WITH ABOUT POSSIBLE HOSPICE AND CODE STATUS. "MY CHILDREN ARE COMING. MY MIDDLE SON WILL BE HERE TOMORROW AND WE ARE ALL GOING TO SIT DOWN AND DISCUSS IT TOMORROW". BIPAP PLACED BACK ON PT. VSS. DENIES PAIN AND ANY NEEDS AT THIS TIME. WILL CONT POC
--- NOTE | 2017-05-03 15:56 | NUR ---
PT RESTING IN BED WITH EYES CLOSED. REMAINS ON BIPAP AT 35%. VSS. CALL LIGHT IN REACH. WILL CONT POC
--- NOTE | 2017-05-03 18:23 | NUR ---
DAUGHTER AND SON AT BED SIDE. INFORMED THEM ABOUT HER CONDITION AND THE POSSIBILITY OF HOSPICE AND HER CODE STATUS. THEY EXPLAINED THAT THEY ARE GOING TO HAVE A FAMILY MEETING TOMORROW WHENEVER THE OTHER BROTHER GETS HERE.
--- NOTE | 2017-05-03 19:45 | NUR ---
SHIFT ASSESSMENT COMPLETE. PT HAS LOW ENERGY AND IS LETHARGIC. SHE HAS MODERATE WEAKNESS TO ALL EXTREMITIES. BIPAP ON AT 35% O2 SAT 98%. SHE DENIES ANY PAIN OR DISCOMFORT AT THIS TIME. S1S2 AUDIBLE. HR 122 UNCONTROLLED A-FIB. BP 116/78, RR 20, SHALLOW, EXPIRATORY WHEEZES HEARD BILAT. ABD IS DISTENDED AND SOFT, BS ACTIVE X4. GERMAIN CATH INTACT DRAINING CLEAR YELLOW URINE. GENERALIZED WEEPING EDEMA NOTED, PADS CHANGED UNDER ARMS. BILAT DRESSINGS TO ANKLES, CDI NO SIGNS OF INFECTION SEEN. RADIAL AND PEDAL PULSES PALP. PIV TO L UPPER ARM INFUSING 30 ML/HR OF NS. NO REQUESTS AT THIS TIME. CALL LIGHT IN REACH. BED IN LOWEST POSITION. WILL CONT WITH POC.
--- NOTE | 2017-05-03 21:30 | NUR ---
PT ABLE TO TAKE PO MEDS WITH NC @ 4 L/MIN. SHE HAS A BLISTER ON HER NOSE FROM THE BIPAP. DRESSED IT WITH AN EXTRA THIN DUODERM DRESSING. O2 SATURATION STARTED TO DECREASE. PUT PT BACK ON BIPAP AT 35%. O2 SATURATION WAS NOT INCREASING. RT AT BEDSIDE, INCREASED TO 50%. O2 SAT IS NOW 96% AND THE PT IS RESTING COMFORTABLY. NO FURTHER CHANGES NOTED. ORAL CARE PROVIDED. CALL LIGHT IN REACH. BED IN LOWEST POSITION. REPOSITONED FOR COMFORT. WILL CONT WITH POC.
--- NOTE | 2017-05-03 23:00 | NUR ---
PT LYING IN BED WITH BIPAP ON AT 50%. NO SIGNS OF ACUTE DISTRESS NOTED. REASSESSMENT COMPLETE. NO CHANGES FROM PREVIOUS ASSESSMENT. REPOSITIONED FOR COMFORT. CALL LIGHT IN REACH. BED IN LOWEST POSITION. WILL CONT TO MONITOR.
[2017-05-04] VITALS (23 sets, daily range): BP systolic 98–168; BP diastolic 62–96
--- NOTE | 2017-05-04 01:00 | NUR ---
REPOSITIONED FOR COMFORT. HR 71 BPM, CONTROLLED A-FIB. BP 130/75. NO COMPLAINTS OF PAIN OR DISCOMFORT. CALL LIGHT IN REACH. BED IN LOWEST POSITION. WILL CONT WITH POC.
--- NOTE | 2017-05-04 03:30 | NUR ---
REASSESSMENT COMPLETE. PT IS WEAK, BUT SHE DENIES ANY PAIN OR DISCOMFORT. PARTIAL LINEN CHANGE COMPLETE. LARGE SEMI FORMED BROWN BM. CHANGED PADS UNDERNEATH ARMS AND LEGS DUE TO WEEPING EDEMA. WARM BLANKET APPLIED OVER PT. BIPAP ON @ 50% O2 SAT 97%. HR 61 CONTROLLED A FIB. NO FURTHER CHANGES. CALL LIGHT IN REACH. BED IN LOWEST POSITION. WILL CONT TO MONITOR.
[2017-05-04 03:50] LABS: BASOPHILS 0.1 % (0-2); EOSINOPHILS 0 % (0-7); HEMATOCRIT 24.6 % (36.0-48.0); HEMOGLOBIN 7.6 g/dL (12-16); IMMATURE GRANULOCYTES 1.4 % (0-5); LYMPHOCYTES 3.9 % (15-50); MCH 29.1 pg (26.0-34.0); MCHC 30.9 g/dL (31.0-37.0); MCV 94.3 fL (80.0-100.0); MEAN PLATELET VOLUME 10.8 fL (7.4-10.4); MONOCYTES 2.8 % (2-11); NEUTROPHILS 91.8 % (40-80); RBC 2.61 10x6/uL (4.00-5.40)
[2017-05-04 03:55] LABS: PLATELET COUNT 163 10x3/uL (130-400); WBC 16.3 10x3/uL (4.8-10.8)
[2017-05-04 04:01] LABS: INR 3.01 (0.85-1.17); PROTIME 31.5 SECONDS (11.6-15.0)
[2017-05-04 04:19] LABS: ALKALINE PHOSPHATASE 59 U/L (46-116); CALC OSMOLALITY 301 mosm/kg (275-300); CALCIUM 8.8 mg/dL (8.5-10.1); CHLORIDE - SERUM 106 mmol/L (98-107); CREATININE - SERUM 0.7 mg/dL (0.6-1.3); GLUCOSE 120 mg/dL (74-106); POTASSIUM - SERUM 3.1 mmol/L (3.5-5.1); SODIUM 145 mmol/L (136-145); UREA NITROGEN 46 mg/dL (7-18); eGFR NON AFRICAN AMERICAN 86 mL/min (90-120)
[2017-05-04 04:21] LABS: ALBUMIN 2.8 g/dL (3.4-5.0); ALT (SGPT) 116 U/L (10-68)
--- NOTE | 2017-05-04 05:00 | NUR ---
REPOSITONED PT FOR COMFORT. SHE DENIES ANY NEEDS AT THIS TIME. BIPAP ON. VSS. WILL CONT WITH POC.
--- NOTE | 2017-05-04 07:00 | NUR ---
REPORT RECIEVED FROM OFF GOING NURSE. ON BIPAP AT 50%. PT IS SOB. RESP IS 18 AND O2 SAT 91%. VSS. CONTROLLED AFIB AT 62. DENIES PAIN AT THIS TIME. ALL EXTRIMITIES +2 WHEEPING EDEMA. BED PADS PLACED UNDER EXTRIMITES. NEWS SHEET AND BLANKET DUE TO WHEEPING EDEMA. DR FRANKLIN AT BED SIDE ASKING ABOUT HOSPICE. PT ADMITS SHE IS SCARED BUT SHE IS ALSO TIRED OF STRUGGLING TO BREATH. WAITING FOR FAMILY TO ARRIVE TO DISCUSS POC. CALL LIGHT IN REACH.
--- NOTE | 2017-05-04 09:08 | NUR ---
SON AND AT BEDSIDE. SPOKE ABOUT PT'S CONDITION. THEY ARE WAITING FOR THE REMAINING FAMILY TO ARRIVE BEFORE BAKING A DECISION ABOUT HOSPICE.
--- NOTE | 2017-05-04 10:03 | NUR ---
Nutrition Follow Up: Chart reviewed. Noted pt and family to discuss hospice today. Pt is eating 24% meal avg on a regular [facility] soft diet. Wt stable. +BM 05/04/17. Meds noted. Labs reviewed. Rec continue current diet. RD following.
--- NOTE | 2017-05-04 11:08 | NUR ---
CM spoke with spouse - he states their sons will be here this afternoon and they wish to meet with hospice labor representative. Referral sent to [facility]. Wireline Operator will meet with family at [address] Notified Dr. Kwong of above. CM will follow & assist as needed.
--- NOTE | 2017-05-04 11:43 | NUR ---
PT RESTING QUIETLY IN BED. REMAINS ON BIPAP AT 50%. RESP 20 AND SPO2 AT 90%. NO FAMILY AT BED SIDE. CASE MANAGEMENT STATED THAT THE WENT AND SPOKE WITH DR FRANKLIN AT HIS OFFICE AND THEY SET UP A HOSPICE MEETING AT 1500. CALL LIGHT IN REACH. WILL CONT POC
--- NOTE | 2017-05-04 12:01 | NUR ---
SMALL SOFT BM. PT CLEANED AND NEW BED PADS APPLIED TO BED. BUTTPAST APPLIED TO BOTTOM. NO REDDNESS NOTED. PT REPOSITIONED FOR COMFORT. WILL CONT POC.
--- NOTE | 2017-05-04 12:35 | NUR ---
DR WOLFE SPOKE WITH . AGREED FOR DNR. CHART UPDATED.
--- NOTE | 2017-05-04 15:00 | NUR ---
STILL WAITING ON ALL FAMILY MEMBERS TO BE AT THE HOSPITAL. HOSPICE MEETING PUSHED BACK UNTILL 1530. PT REMAINS ON BIPAP AT 50%. SOB NOTED. RESP 22 AND SPO2 AT 92%. CALL LIGHT IN REACH. WILL CONT POC
--- NOTE | 2017-05-04 16:20 | NUR ---
SPOKE WITH FAMILY. PT IS GOING TO GO ON HOSPICE TOMORROW AT [address]. [address] FRANKLIN NOTIFIED AND AWARE.
--- NOTE | 2017-05-04 17:49 | NUR ---
STILL WAITING FOR ROOM FOR PT TO TRANSFER TO. HOUSE SUPIVISER CALLED AND HE STATED IT IS BEING CLEANED. FAMILY AT PT'S BED SIDE. NO CHANGES IN CONDITION. REMAINS ON 50%O2 VIA BIPAP. CALL LIGHT IN REACH. WILL CONT POC
--- NOTE | 2017-05-04 19:00 | NUR ---
1900: Pt rec'd resting HOB 30 degrees with eyes open to verbal. Pupils EARL+ bilat. Pt able to move extrem weakly vs. gravtiy. Pt attempts to follow commands, but is visibly weak and unable. Pt nods head approp to questions. Pt denies pain at this time. Pt breathing shallow with Bipap in place at 50% FIO2. Lungs with absent LS on right side and only rhonci audible in left upper lobe with auscultation. MMP and no cyanosis noted. S1S2 loud, rapid, irregular heart tones. PPPx4 irregular and rapid. Afib 100-120 bpm on CM with SBP 120's. ABD soft NT BS absent x4. Ann to gravity with >30 cc/hr clear, yellow UOP. SR up x2, call light in reach, and all alarms are on and intact.
--- NOTE | 2017-05-04 20:30 | NUR ---
2030: Pt family request pt to eat. Pt placed on Oximizer 12L at this time for oral care. Pt SPO2 decreased immediatley to 86%. Oral care done and Bipap resumed. FIO2 increased to keep SPO2 >90%. Pt placed flat in bed with head and neck midline. HOB 40 degrees. No air leaks detected in Bipap.
--- NOTE | 2017-05-04 21:45 | NUR ---
REPORT RECEIVED FROM VIANCA WILSON.
--- NOTE | 2017-05-04 22:00 | NUR ---
PT ARRIVED VIA BED ESCORTED BY 2 ICU NURSES. ORIENTED TO ROOM AND CALL LIGHT WITH FAMILY. RT HERE TO PLACE PT ON BIPAP. IV IN LEFT UPPER ARM PATENT WITH NS INFUSING AT 30 ML / HR. GERMAIN CATHETER DRAINING TO GRAVITY WITH YELLOW URINE IN COLLECTION BAG. DRESSINGS ON BLE CLEAN AND DRY. LUNG SOUNDS DIMINISHED IN ALL LUNG OVIEDO. WILL MONITOR CLOSELY FOR NEEDS.
--- NOTE | 2017-05-04 22:15 | NUR ---
2215: Pt transferred to 2224 x2 RNs and RT. Pt placed on 100% NRB for transfer. Returned to 100% Bipap after transfer. Pt famly at bedside. Oral care done and report completed with recieving nurse.
--- NOTE | 2017-05-04 22:20 | NUR ---
2220: All pt belongings taken to room. Partial was given to pt .
--- NOTE | 2017-05-04 23:01 | NUR ---
PT SPO2 84% AT THIS CHECK ON BIPAP. CALLED RT RACHEL TO ADVISE OF DECREASE IN SATS.
--- NOTE | 2017-05-04 23:10 | NUR ---
RT HERE ASSESSING PT. PT ON BIPAP AT 100% AND SPO2 IN THE LOW 80'S. NEXT RESPIRATORY TX IS AT 0300. WILL CONTINUE TO MONITOR CLOSLEY. FAMILY MEMBER IS AT BEDSIDE.
--- NOTE | 2017-05-04 23:17 | NUR ---
BIPAP MASK RE-ADJUSTED AND SPO2 NOW 93%. WILL CONTINUE TO MONITOR FOR NEEDS. DAUGHTER IS AT BEDSIDE.
[2017-05-05] VITALS: BP 108/69
--- NOTE | 2017-05-05 01:30 | NUR ---
PT TEMP LOW...PLACED WARMED BLANKET ON PT FOR COMFORT.
--- NOTE | 2017-05-05 07:45 | NUR ---
ENTERED ROOM AT THIS TIME TO ASSESS PT, COULD NOT OBSERVE RISE AND FALL OF CHEST. NO BREATH SOUNDS HEARD UPON AUSCULTATION NOR HEART SOUNDS HEARD. PAGE PLACED TO PUMP TECHNICIAN PHYSCIAN. AWAITING RETURN PHONE CALL.
--- NOTE | 2017-05-05 08:15 | NUR ---
SPOKE WITH DR. POLANCO'Sakina AT THIS TIME, WILL COME TO PRONOUNCE PT.
--- NOTE | 2017-05-05 10:00 | NUR ---
PT PRONOUNCED BY AT 0815. HALLE CALLED AT 0935 AND SPOKE WITH BENJI, REF# [id number]. [facility] NOTIFIED AT 0845, PT FAMILY REQUEST TIME ALONE WITH PT. HOME CALLED AGAIN WHEN FAMILY WAS READY. PT WAS RELEASED TO [facility] AT THIS TIME.
--- NOTE | 2017-05-05 14:14 | NUR ---
Late Entry Patient this AM. CM telephoned [facility] to advise of patient . The plan had been for discharge to home on hospice care.
== END 2017-05-05 10:54 | DRG 189 ==
LOC: D.ICU 08:23 → D.MS 05-04 21:58
PROVIDERS: Internal Medicine Pulmonary Disease; ADMIT Family Medicine
PROC: 0BH17EZ Insertion of Endotracheal Airway into Trachea, Via Natural or Artificial Opening (ICD-10-PCS; principal; 2017-04-18)
PROC: 5A09557 Assistance with Respiratory Ventilation, Greater than 96 Consecutive Hours, Continuous Positive Airway Pressure (ICD-10-PCS; 2017-04-18)
PROC: 5A12012 Performance of Cardiac Output, Single, Manual (ICD-10-PCS; 2017-04-18)
PROC: 5A09457 Assistance with Respiratory Ventilation, 24-96 Consecutive Hours, Continuous Positive Airway Pressure (ICD-10-PCS; 2017-04-23)
DX: J96.21 Acute and chronic respiratory failure with hypoxia (principal); I50.33 Acute on chronic diastolic (congestive) heart failure; G93.41 Metabolic encephalopathy; J15.1 Pneumonia due to Pseudomonas; J44.1 Chronic obstructive pulmonary disease with (acute) exacerbation; E87.1 Hypo-osmolality and hyponatremia; L03.115 Cellulitis of right lower limb; J44.0 Chronic obstructive pulmonary disease with (acute) lower respiratory infection; I48.0 Paroxysmal atrial fibrillation; Z79.01 Long term (current) use of anticoagulants; I11.0 Hypertensive heart disease with heart failure; K21.9 Gastro-esophageal reflux disease without esophagitis; D63.8 Anemia in other chronic diseases classified elsewhere; J84.10 Pulmonary fibrosis, unspecified; Z99.81 Dependence on supplemental oxygen; I25.10 Atherosclerotic heart disease of native coronary artery without angina pectoris; R79.89 Other specified abnormal findings of blood chemistry; J96.22 Acute and chronic respiratory failure with hypercapnia; E87.6 Hypokalemia; I34.0 Nonrheumatic mitral (valve) insufficiency; E83.42 Hypomagnesemia; E83.39 Other disorders of phosphorus metabolism